=== PATIENT | female | born 1995 | race African-American/Black ===

== ENCOUNTER 2017-04-12 01:22 | Emergency (ER) | payer SELFPAY ==
[2017-04-12 02:01] VITALS: BMI 24.9
[2017-04-12] MEDS ORDERED: diphenhydrAMINE HCL 25 MG CAPSULE (FP) PO ONE ×2 (02:36→02:47)
--- NOTE | 2017-04-12 02:54 | PDOC ---
History of Present Illness - General Stated Complaint: SORE THROAT,ALLERGIC REACTION Time Seen by Provider: 04/12/17 01:39 - History of Present Illness Initial Comments: 04/12/17 02:43 CHIEF COMPLAINT: Sore throat HISTORY OF PRESENT ILLNESS: 21-year-old female with no past medical history presents to ED with sore throat 5 days. Fever, nausea, vomiting, diarrhea. With that she woke up with her lips, itching and tingling to the tip of her nose. Patient denies taking any medication or eating any new foods. Patient denies having any allergies in the past. Denies any difficulty speaking or swallowing, any swelling of her lips, throat, or inside of her mouth. No recent travel or sick contacts. PAST MEDICAL HISTORY: Denies past medical history FAMILY HISTORY: Denies SOCIAL HISTORY: Denies tobacco, alcohol, illicit drug use. SURGICAL HISTORY: Denies ALLERGIES: No known drug allergies REVIEW OF SYSTEMS General/Constitutional: Denies fever or chills. Denies weakness, weight change. HEENT: Sore throat x 5 days. Denies change in vision. Denies ear pain or discharge. Cardiovascular: Denies chest pain or shortness of breath. Respiratory: Denies cough, wheezing, or hemoptysis. Gastrointestinal: Denies nausea, vomiting, diarrhea or constipation. Denies rectal bleeding. Genitourinary: Denies dysuria, frequency, or change in urination. Musculoskeletal: Denies joint or muscle swelling or pain. Denies neck or back pain. Skin and breasts: Denies rash or easy bruising. Neurologic: Denies headache, vertigo, loss of consciousness, or loss of sensation. PHYSICAL EXAM General Appearance: Well-appearing, appropriately dressed. No apparent distress , no intoxication. HEENT: EOMI, PERRLA, normal ENT inspection, normal voice, TMs normal, pharynx normal. No conjunctival pallor. No photophobia, scleral icterus. Neck: Supple. Trachea midline. No tenderness, rigidity, carotid bruit, stridor , lymphadenopathy, or thyromegaly. Respiratory/Chest: Lungs CTAB. No shortness of breath, chest tenderness, respiratory distress, accessory muscle use. No crackles, rales, rhonchi, stridor , wheezing, dullness Cardiovascular: RRR. S1, S2. No JVD, murmur, bradycardia, tachycardia. Vascular Pulses: Dorsalis-Pedis (R): 2+, Dorsalis-Pedis (L): 2+ Gastrointestinal/Abdominal: Normal bowel sounds. Abdomen soft, non-distended. No tenderness or rebound tenderness. No organomegaly, pulsatile mass, guarding , hernia, hepatomegaly, splenomegaly. Lymphatic: No adenopathy, tenderness. Musculoskeletal/Extremities: Normal inspection. FROM of all extremities, normal capillary refill. Pelvis Stable. No CVA tenderness. No tenderness to extremities, pedal edema, swelling, erythema or deformity. Integumentary: Appropriate color, dry, warm. No cyanosis, erythema, jaundice or rash Neurologic: automatic driller and reamer II-XII intact. Fully oriented, alert. Appropriate mood/affect. Motor strength 5/5. No appreciable EOM palsy, facial droop or sensory deficit. 04/12/17 02:54 Past History - Past Medical History Allergies/Adverse Reactions: Allergies Allergy/AdvReac Type Severity Reaction Status Date / Time No Known Allergies Allergy Verified 09/27/13 09:33 Home Medications: Ambulatory Orders Medroxyprogesterone Acetate [Depo-Provera] 400 mg IM MONTHLY 09/16/13 Amoxicillin - [Amoxicillin 500mg Capsule -] 500 mg PO BID #20 capsule 04/12/17 Anemia: No Asthma: No Cancer: No Cardiac Disorders: No CVA: No COPD: No DVT: No Dementia: No Diabetes: No Dialysis: No GI Disorders: No Disorders: No HTN: No Hypercholesterolemia: No HIV: No Kidney Stones: No Liver Disease: No Psychiatric Problems: No Seizures: No Thyroid Disease: No Lung CA: No - Surgical History Abdominal Surgery: No Appendectomy: No Cardiac Surgery: No Cholecystectomy: No Gastric Stapling: No GI Surgery: No Lung Surgery: No Neurologic Surgery: No - Immunization History Immunization Up to Date: Yes - Psycho/Social/Smoking Cessation Hx Anxiety: No Suicidal Ideation: No Smoking History: Never smoked Have you smoked in the past 12 months: No Information on smoking cessation initiated: No Hx Alcohol Use: Yes (Socially) Drug/Substance Use Hx: Yes (Marijuana) Substance Use Type: Marijuana *Physical Exam - Vital Signs Last Vital Signs Temp Pulse Resp BP Pulse Ox 98.5 F 69 18 105/64 96 04/12/17 01:49 04/12/17 01:49 04/12/17 01:49 04/12/17 01:49 04/12/17 01:49 Medical Decision Making - Medical Decision Making 04/12/17 02:54 21-year-old female with no past medical history presents to ED with sore throat 5 days. -Benadryl -Rapid strep 04/12/17 03:37 Patient partner is also here in ER being treated for sore throat with significantly edematous and erythematous tonsils. Will treat empirically with amoxicillin. Advised patient to take medication as prescribed and follow up with PMD next week. Advised patient of signs and symptoms for return to ED. Patient verbalized understanding and agrees to plan. *DC/Admit/Observation/Transfer Diagnosis at time of Disposition: Sore throat - Discharge Dispostion Disposition: HOME Condition at time of disposition: Stable Admit: No - Prescriptions Prescriptions: Amoxicillin - [Amoxicillin 500mg Capsule -] 500 mg PO BID #20 capsule - Patient Instructions Additional Instructions: Pleaes take medication as prescribed and complete the entire course of medication. Please follow-up with primary care doctor next week. If you develop any fever, nausea, vomiting, difficulty speaking or swallowing, swelling of your throat, or any new or worsening symptoms, please return to the ER. - Post Discharge Activity Work/School Note: Back to Work
[2017-04-12 03:55] VITALS: BP 101/66; PULSE 56; TEMP 98.2
== END 2017-04-12 04:11 | disposition home or self-care (01) ==
LOC: JER 01:22
DX: J02.9 Acute pharyngitis, unspecified (principal)
CPT/HCPCS: 87070; 87077; 87430; 99282-25

== ENCOUNTER 2017-07-16 00:30 | Inpatient (IN) | payer BC ==
[2017-07-16 01:22] VITALS: BMI 22.3
--- NOTE | 2017-07-16 01:36 | PDOC ---
History of Present Illness - General History Source: Patient Exam Limitations: No Limitations - History of Present Illness Initial Comments: 07/16/17 01:43 The patient is a 22 year old female, with no significant past medical history who presents to the emergency department with difficulty breathing. Patient states she has been wearing a waist circus trainer for the past week and is dyspneic secondary to R rib pain. Patient states due to her pain, she took the circus trainer off and presents to the ED for further evaluation. Note, patient is on Depo- Provera for control. She denies chest pain, headache or dizziness. She denies fever, chills, abdominal pain, nausea, vomit, diarrhea or constipation. She denies dysuria, frequency, urgency or hematuria. Allergies: NKA Past surgical history: None Social history: Occasional MJ use PCP: None <Cecille Gaytan - Last Filed: 07/16/17 03:10> - General History Source: Patient <MerrickElias tomas - Last Filed: 07/16/17 21:41> - General Chief Complaint: Respiratory Stated Complaint: DIFFICULTY BREATHING Time Seen by Provider: 07/16/17 01:33 Past History <Cecille Gaytan - Last Filed: 07/16/17 03:10> - Past Medical History Anemia: No Asthma: No Cancer: No Cardiac Disorders: No CVA: No COPD: No DVT: No Dementia: No Diabetes: No Dialysis: No GI Disorders: No Disorders: No HTN: No Hypercholesterolemia: No Kidney Stones: No Liver Disease: No Psychiatric Problems: No Seizures: No Thyroid Disease: No Lung CA: No - Surgical History Abdominal Surgery: No Appendectomy: No Cardiac Surgery: No Cholecystectomy: No Gastric Stapling: No GI Surgery: No Lung Surgery: No Neurologic Surgery: No - Immunization History Immunization Up to Date: Yes - Suicide/Smoking/Psychosocial Hx Smoking History: Current some day smoker Have you smoked in the past 12 months: Yes Information on smoking cessation initiated: No Hx Alcohol Use: Yes (Socially) Drug/Substance Use Hx: Yes (Marijuana) Substance Use Type: Marijuana <Elias Gutierrez - Last Filed: 07/16/17 21:41> - Past Medical History Allergies/Adverse Reactions: Allergies Allergy/AdvReac Type Severity Reaction Status Date / Time No Known Allergies Allergy Verified 07/16/17 01:19 Home Medications: Ambulatory Orders Medroxyprogesterone Acetate [Depo-Provera] 400 mg IM MONTHLY 09/16/13 Review of Systems - Review of Systems Able to Perform ROS?: Yes Comments:: 07/16/17 01:43 GENERAL/CONSTITUTIONAL: No fever or chills. No weakness. HEAD, EYES, EARS, NOSE AND THROAT: No change in vision. No ear pain or discharge. No sore throat. GASTROINTESTINAL: No nausea, vomiting, diarrhea or constipation. GENITOURINARY: No dysuria, frequency, or change in urination. CARDIOVASCULAR: No chest pain or shortness of breath. RESPIRATORY: No cough, wheezing, or hemoptysis. MUSCULOSKELETAL: + rib pain. No joint or muscle swelling or pain. No neck or back pain. SKIN: No rash NEUROLOGIC: No headache, vertigo, loss of consciousness, or change in strength/ sensation. ENDOCRINE: No increased thirst. No abnormal weight change. HEMATOLOGIC/LYMPHATIC: No anemia, easy bleeding, or history of blood clots. ALLERGIC/IMMUNOLOGIC: No hives or skin allergy. <Cecille Gaytan - Last Filed: 07/16/17 03:10> *Physical Exam - Vital Signs Last Vital Signs Temp Pulse Resp BP Pulse Ox 98.2 F 106 H 22 104/66 100 07/16/17 01:20 07/16/17 01:20 07/16/17 01:20 07/16/17 01:20 07/16/17 01:20 - Physical Exam Comments: 07/16/17 01:44 GENERAL: Awake, alert, and fully oriented, in no acute distress HEAD: No signs of trauma EYES: PERRLA, EOMI, sclera anicteric, conjunctiva clear ENT: Auricles normal inspection, hearing grossly normal, nares patent, oropharynx clear without exudates. Moist mucosa NECK: Normal ROM, supple, no lymphadenopathy, JVD, or masses LUNGS: + Bilateral decreased breath sounds great jean carlos L than R, clear to auscultation bilaterally. No wheezes, and no crackles HEART: Regular rate and rhythm, normal S1 and S2, no murmurs, rubs or gallops ABDOMEN: Soft, nontender, normoactive bowel sounds. No guarding, no rebound. No masses EXTREMITIES: Normal range of motion, no edema. No clubbing or cyanosis. No cords, erythema, or tenderness NEUROLOGICAL: Cranial nerves II through XII grossly intact. Normal speech, normal gait SKIN: Warm, Dry, normal turgor, no rashes or lesions noted. <Cecille Gaytan - Last Filed: 07/16/17 03:10> - Vital Signs Last Vital Signs Temp Pulse Resp BP Pulse Ox 98.2 F 106 H 22 104/66 100 07/16/17 01:20 07/16/17 01:20 07/16/17 01:20 07/16/17 01:20 07/16/17 01:20 <Elias Gutierrez - Last Filed: 07/16/17 21:41> Heart Score/ECG Review #1 07/16/17 03:[address] Brenda Payne. rate 96 bpm NSR Normal ECG <Cecille Gaytan - Last Filed: 07/16/17 03:10> ED Treatment Course - LABORATORY CBC & Chemistry Diagram: 07/16/17 01:50 07/16/17 01:50 <Cecille Gaytan - Last Filed: 07/16/17 03:10> - LABORATORY CBC & Chemistry Diagram: 07/16/17 13:50 07/16/17 09:20 <Elias Gutierrez - Last Filed: 07/16/17 21:41> Medical Decision Making - Medical Decision Making 07/16/17 21:40 Dr. Gutierrez: The scribe's documentation has been prepared under my direction and personally reviewed by me in its entirery. I confirm that the note above accurately reflects all work, treatment, procedures, and medical decision making performed by me. <Elias Gutierrez - Last Filed: 07/16/17 21:41> *DC/Admit/Observation/Transfer - Attestations Scribe Attestion: 07/16/17 01:44 Documentation prepared by Cecille Gaytan, acting as healthcare or medical for Elias Gutierrez DO. <Cecille Gaytan - Last Filed: 07/16/17 03:10> - Discharge Dispostion Admit: Yes <Elias Gutierrez - Last Filed: 07/16/17 21:41> Diagnosis at time of Disposition: Pulmonary embolism Qualifiers: Chronicity: acute Acute cor pulmonale presence: without acute cor pulmonale
[2017-07-16] MEDS ORDERED: ALBUTEROL SO4 2.5/IPRATROPIUM 0.5 INH SOL 3 ML VIAL.NEB. NEB STA ×2 (01:38)
[2017-07-16] MEDS ORDERED: KETOROLAC TROMETHAMINE 30 MG/1 ML VIAL IVPUSH ONE (01:44)
[2017-07-16 01:57] LABS: EOSINOPHIL 0.1 % (0-4.5); MCH 29.7 pg (25.7-33.7); MCHC 33.6 g/dl (32.0-36.0); MEAN CELL VOLUME 88.4 fl (80-96); MEAN PLT VOLUME 8.6 fl (7.5-11.1); NEUTROPHILS 84.7 % (42.8-82.8); PLATELET COUNT 220 K/MM3 (134-434); RDW 13.9 % (11.6-15.6); WHITE BLOOD COUNT 19.1 K/mm3 (4.0-10.0)
[2017-07-16 02:22] LABS: ANION GAP 11 (8-16); CALCIUM 8.5 mg/dL (8.5-10.1); CO2 21 mmol/L (21-32); CREATININE 2.3 mg/dL (0.55-1.02); GLUCOSE,RANDOM 107 mg/dL (74-106)
[2017-07-16] MEDS ORDERED: SODIUM CHLORIDE 1,000 ML IV STA (02:29)
[2017-07-16] MEDS ORDERED: morphine CARPU-JECT 2 MG/1 ML DISP.SYRIN IVPUSH ONE (02:31)
[2017-07-16] MEDS ORDERED: HEPARIN NA (PORCINE) 5,000 UNITS/ML 1ML VIAL IVPUSH PRN ×2 (02:31)
[2017-07-16] MEDS ORDERED: ONDANSETRON 4 MG/2 ML VIAL IVPUSH STA (02:31)
[2017-07-16] MEDS ORDERED: morphine CARPU-JECT 4 MG/1 ML DISP.SYRIN ONE (02:49)
[2017-07-16] MEDS ORDERED: morphine CARPU-JECT 2 MG/1 ML DISP.SYRIN ONE (02:49)
[2017-07-16] MEDS ORDERED: ONDANSETRON 4 MG/2 ML VIAL ONE (02:50)
[2017-07-16] MEDS ORDERED: HEPARIN INFUSION - 500 ML IVPB ONE (02:51)
[2017-07-16] MEDS ORDERED: HEPARIN NA (PORCINE) 5,000 UNITS/ML 1ML VIAL ONE ×2 (02:51→10:44)
[2017-07-16] MEDS: HEPARIN - 25,000 UNIT in SODIUM CHLORIDE 495 ML IV SCH ×2 (02:59→18:51)
[2017-07-16 03:02] LABS: ALBUMIN 2.7 g/dl (3.4-5.0); BILIRUBIN,DIRECT 0.4 mg/dL (0.0-0.2); BILIRUBIN,TOTAL 0.9 mg/dL (0.2-1.0)
[2017-07-16 03:03] LABS: TOT PROT 6.1 g/dl (6.4-8.2)
[2017-07-16 04:51] LABS: URINE APPEARANCE TURBID; URINE BILIRUBIN NEGATIVE (NEGATIVE); URINE BLOOD 2+ (NEGATIVE); URINE COLOR DKYELLOW; URINE GLUCOSE (UA) NEGATIVE (NEGATIVE); URINE KETONE NEGATIVE (NEGATIVE); URINE NITRITE NEGATIVE (NEGATIVE); URINE UROBILINOGEN NEGATIVE mg/dL (0.2-1.0)
--- NOTE | 2017-07-16 04:51 | HP ---
CHIEF COMPLAINT: Shortness of Breath PCP: None HISTORY OF PRESENT ILLNESS: Ms. Hernandez is a 22yo F with no significant PMHx who presented with a few days of L CVA tenderness and SOB. Pt recently started wearing a waist life skills trainer for 3- 4 days and suddenly felt sharp pain in her L side near ribs. Pain was worse w/ movement, mild relief w/ pain meds and Icy-Hot patch. Two days ago the patient noticed gradual onset difficulty breathing. States deep breathing instigates the pain in her L side. Denies cough, wheezing, or hx of asthma. Pt is on Depoprovera [id number], but denies hemoptysis, leg swelling, inactivity, immobility, smoking history, cancer history. Patient denies urinary symptoms (urgency, frequency, dysuria). Denies personal or FHx of kidney disease. Endorses decreased PO food and fluid intake due to recent passing of aunt. Denies rashes, joint pain, or hx of rheumatologic disease. ER course was notable for: (1) Hemodynamically stable. WBC 19.1 + Tachy (103) + positive UA (2) +D-dimer; BUN/Cr - 29/2.3 (3) IVNS Bolus + Pain control (Morphine, Toradol) Recent Travel: Denies PAST MEDICAL HISTORY: Denies PAST SURGICAL HISTORY: Denies Social History: Smoking: Denies Alcohol: Occasional Drugs: Occasional marijuana Family History: Denies FHx of clotting disorders, kidney disease Allergies: No Known Allergies Allergy (Verified 07/16/17 01:19) HOME MEDICATIONS: Home Medications Medication Instructions Recorded Medroxyprogesterone Acetate 400 mg IM MONTHLY 09/16/13 [Depo-Provera] REVIEW OF SYSTEMS CONSTITUTIONAL: Absent: fever, chills, diaphoresis, generalized weakness, malaise, loss of appetite, weight change HEENT: Absent: rhinorrhea, nasal congestion, throat pain, throat swelling, difficulty swallowing, mouth swelling, ear pain, eye pain, visual changes CARDIOVASCULAR: Absent: chest pain, syncope, palpitations, irregular heart rate, lightheadedness , peripheral edema RESPIRATORY: Absent: cough, dyspnea with exertion, orthopnea, wheezing, stridor, hemoptysis Present: shortness of breath GASTROINTESTINAL: Absent: abdominal pain, abdominal distension, nausea, vomiting, diarrhea, constipation, melena, hematochezia GENITOURINARY: Absent: dysuria, frequency, urgency, hesitancy, hematuria, flank pain, genital pain MUSCULOSKELETAL: Absent: arthralgia, joint swelling, back pain, neck pain Present: myalgia SKIN: Absent: rash, itching, pallor HEMATOLOGIC/IMMUNOLOGIC: Absent: easy bleeding, easy bruising, lymphadenopathy, frequent infections ENDOCRINE: Absent: unexplained weight gain, unexplained weight loss, heat intolerance, cold intolerance NEUROLOGIC: Absent: headache, focal weakness or paresthesias, dizziness, unsteady gait, seizure, mental status changes, bladder or bowel incontinence PSYCHIATRIC: Absent: anxiety, depression, suicidal or homicidal ideation, hallucinations. PHYSICAL EXAMINATION Vital Signs Temperature 98.2 F 07/16/17 01:20 Pulse Rate 83 07/16/17 04:24 Respiratory Rate 16 07/16/17 04:24 Blood Pressure 101/68 07/16/17 04:24 O2 Sat by Pulse Oximetry (%) 97 07/16/17 04:24 GEN: AAOx3, in mild distress due to L sided pain, not in respiratory distress HEENT: PERRLA, EOMI, exophthalmos, no cervical LAD, no thyromegaly CV: S1, S2, RRR, no murmurs LUNG: CTABL ABD: Soft, NT, ND, Normoactive BS MSK: L CVA tenderness, with tenderness to surrounding ribs, no lower ext edema NEURO: CN 2-12 intact, sensation equal and intact to face and body, MSK 5/5, reflexes 2+ Home Medication List Medication Instructions Recorded Confirmed Type Medroxyprogesterone Acetate 400 mg IM MONTHLY 09/16/13 07/16/17 History [Depo-Provera] Laboratory Last Values WBC 19.1 K/mm3 (4.0-10.0) H 07/16/17 01:50 RBC 4.08 M/mm3 (3.60-5.2) 07/16/17 01:50 Hgb 12.1 GM/dL (10.7-15.3) 07/16/17 01:50 Hct 36.0 % (32.4-45.2) 07/16/17 01:50 MCV 88.4 fl (80-96) 07/16/17 01:50 MCH 29.7 pg (25.7-33.7) 07/16/17 01:50 MCHC 33.6 g/dl (32.0-36.0) 07/16/17 01:50 RDW 13.9 % (11.6-15.6) 07/16/17 01:50 Plt Count 220 K/MM3 (134-434) 07/16/17 01:50 MPV 8.6 fl (7.5-11.1) 07/16/17 01:50 Neutrophils % 84.7 % (42.8-82.8) H 07/16/17 01:50 Lymphocytes % 3.9 % (8-40) L 07/16/17 01:50 Monocytes % 11.3 % (3.8-10.2) H 07/16/17 01:50 Eosinophils % 0.1 % (0-4.5) 07/16/17 01:50 Basophils % 0.0 % (0-2.0) 07/16/17 01:50 D-Dimer 1047 ng/ml (<200-235) H 07/16/17 01:50 Sodium 137 mmol/L (136-145) 07/16/17 01:50 Potassium 3.7 mmol/L (3.5-5.1) 07/16/17 01:50 Chloride 105 mmol/L (98-107) 07/16/17 01:50 Carbon Dioxide 21 mmol/L (21-32) 07/16/17 01:50 Anion Gap 11 (8-16) 07/16/17 01:50 BUN 29 mg/dL (7-18) H 07/16/17 01:50 Creatinine 2.3 mg/dL (0.55-1.02) H 07/16/17 01:50 Random Glucose 107 mg/dL (74-106) H 07/16/17 01:50 Lactic Acid 0.6 mmol/L (0.4-2.0) 07/16/17 04:20 Calcium 8.5 mg/dL (8.5-10.1) 07/16/17 01:50 Total Bilirubin 0.9 mg/dL (0.2-1.0) 07/16/17 01:50 Direct Bilirubin 0.4 mg/dL (0.0-0.2) H 07/16/17 01:50 AST 19 U/L (15-37) 07/16/17 01:50 ALT 20 U/L (12-78) 07/16/17 01:50 Alkaline Phosphatase 85 U/L (45-117) 07/16/17 01:50 Creatine Kinase 30 IU/L (26-192) 07/16/17 01:50 Total Protein 6.1 g/dl (6.4-8.2) L 07/16/17 01:50 Albumin 2.7 g/dl (3.4-5.0) L 07/16/17 01:50 Serum , Qual Negative 07/16/17 01:50 Urine Color Dkyellow 07/16/17 04:45 Urine Appearance Turbid 07/16/17 04:45 Urine pH 6.0 (5.0-8.0) 07/16/17 04:45 Urine Protein 1+ (NEGATIVE) H 07/16/17 04:45 Urine Glucose (UA) Negative (NEGATIVE) 07/16/17 04:45 Urine Ketones Negative (NEGATIVE) 07/16/17 04:45 Urine Blood 2+ (NEGATIVE) H 07/16/17 04:45 Urine Nitrite Negative (NEGATIVE) 07/16/17 04:45 Urine Bilirubin Negative (NEGATIVE) 07/16/17 04:45 Urine Urobilinogen Negative mg/dL (0.2-1.0) 07/16/17 04:45 Urine RBC 11 /hpf (0-3) 07/16/17 04:45 Urine WBC 466 /hpf (3-5) 07/16/17 04:45 Ur Epithelial Cells Many /hpf (FEW) 07/16/17 04:45 Urine Bacteria Many /hpf (NONE SEEN) 07/16/17 04:45 Home Medication List Medication Instructions Recorded Confirmed Type Medroxyprogesterone Acetate 400 mg IM MONTHLY 09/16/13 07/16/17 History [Depo-Provera] Active Medications Generic Name Dose Route Start Last Admin Trade Name Freq PRN Reason Stop Dose Admin Acetaminophen 650 mg 07/16/17 04:35 Tylenol - PO Q4H PRN FEVER OR PAIN Heparin Sodium (Porcine) 1,000 unit 07/16/17 02:31 Heparin - IVPUSH PRN PRN Heparin Heparin Sodium (Porcine) 5,000 unit 07/16/17 02:31 Heparin - IVPUSH PRN PRN Heparin Heparin Sodium (Porcine) 25, 500 mls @ 16 mls/hr 07/16/17 02:45 07/16/17 02:59 000 unit/ Sodium Chloride IV 16 mls/hr TITR CRYSTAL Administration Protocol 800 UNIT/HR Sodium Chloride 1,000 mls @ 100 mls/hr 07/16/17 04:45 Normal Saline - IV ASDIR CRYSTAL Ceftriaxone Sodium 1 gm/ 100 mls @ 200 mls/hr 07/16/17 10:00 Dextrose IVPB DAILY CRYSTAL ASSESSMENT/PLAN: Ms. Hernandez is a 22yo F with no significant PMHx who presented with 2 days of SOB , found to have elevated D-dimer and Cr, admitted for r/o PE and JORGE L # Sepsis - likely secondary to Pyelo - WBC, Tachy, +UA - Start Ceftriaxone 1g daily - Blood cx, Urine cx - Renal Ultrasound, check for hydro # JORGE L - vs CKD, no baseline Cr - Obstructive vs renal vs prerenal - FeNa 0.7% - likely pre-renal component - F/u renal U/S - s/p IVNS 1L bolus in ER - Continue to hydrate w/ IVNS 100cc/hr # Shortness of Breath - PE vs rib fracture - Elevated D-dimer, tachycardic, OCP, Wells 4.5 - Prophylactic Heparin drip - Unable to do CTA now due to JORGE L, will order V/Q since CXR looks WNL - BLLE Duplex - Rib X-ray series - Pain control w/ Tylenol 650 Q4 PRN # Exophthalmos - No hx of thyroid disease - F/u TSH # FEN - Fluids: IVNS @ 100cc/hr - Electrolytes: WNL - Nutrition: Regular Diet # Prophylaxis - DVT: Heparin drip - GI: Not indicated - Deconditioning: PT not needed, patient is ambulatory # Dispo - Admit to Med/Surg Case d/w Dr. Garcia and Dr. Anthony Khanna MD - PGY1 Internal Medicine Visit type - Emergency Visit Emergency Visit: Yes ED Registration Date: 07/16/17 Care time: The patient presented to the Emergency Department on the above date and was hospitalized for further evaluation of their emergent condition. - New Patient This patient is new to me today: Yes Date on this admission: 07/18/17 - Critical Care Critical Care patient: No
--- NOTE | 2017-07-16 04:53 | PN ---
Teaching Attending Note Name of Resident: Janki Khanna ATTENDING PHYSICIAN STATEMENT I saw and evaluated the patient. I reviewed the resident's note and discussed the case with the resident. I agree with the resident's findings and plan as documented. SUBJECTIVE: 22 to F with no pmhx presents with shortness of breath and L. flank pain. States about 4 days ago she wore a waist susie and then noticed pain in her left side. Also noticed shortness of breath. No associated cough. ICY-Hot mildly relieved pain. No wheezing. Also notes she takes Depo-Provera every 3 months. States that she has not been eating well and drinking only 3 bottles of Lauren-Georgette per day. OBJECTIVE: Physical: VS: Vital Signs Period Temp Pulse Resp BP Sys/Aparicio Pulse Ox Last 24 Hr 98.2 F 83-106 16-22 101-104/66-68 94-100 GEN: NAD, Resting in bed, HEENT: NCAT, PERRL, throat without exudates, exopthalmos CARD: RRR S1, S2 RESP: CTAB ABD: BSx4, L. CVA tenderness EXT:- C/C/E CBCD WBC 19.1 K/mm3 (4.0-10.0) H 07/16/17 01:50 RBC 4.08 M/mm3 (3.60-5.2) 07/16/17 01:50 Hgb 12.1 GM/dL (10.7-15.3) 07/16/17 01:50 Hct 36.0 % (32.4-45.2) 07/16/17 01:50 MCV 88.4 fl (80-96) 07/16/17 01:50 MCHC 33.6 g/dl (32.0-36.0) 07/16/17 01:50 RDW 13.9 % (11.6-15.6) 07/16/17 01:50 Plt Count 220 K/MM3 (134-434) 07/16/17 01:50 MPV 8.6 fl (7.5-11.1) 07/16/17 01:50 CMP Sodium 137 mmol/L (136-145) 07/16/17 01:50 Potassium 3.7 mmol/L (3.5-5.1) 07/16/17 01:50 Chloride 105 mmol/L (98-107) 07/16/17 01:50 Carbon Dioxide 21 mmol/L (21-32) 07/16/17 01:50 Anion Gap 11 (8-16) 07/16/17 01:50 BUN 29 mg/dL (7-18) H 07/16/17 01:50 Creatinine 2.3 mg/dL (0.55-1.02) H 07/16/17 01:50 Random Glucose 107 mg/dL (74-106) H 07/16/17 01:50 Calcium 8.5 mg/dL (8.5-10.1) 07/16/17 01:50 Total Bilirubin 0.9 mg/dL (0.2-1.0) 07/16/17 01:50 AST 19 U/L (15-37) 07/16/17 01:50 ALT 20 U/L (12-78) 07/16/17 01:50 Alkaline Phosphatase 85 U/L (45-117) 07/16/17 01:50 Total Protein 6.1 g/dl (6.4-8.2) L 07/16/17 01:50 Albumin 2.7 g/dl (3.4-5.0) L 07/16/17 01:50 CARDIAC ENZYMES Creatine Kinase 30 IU/L (26-192) 07/16/17 01:50 Urine Test Results Urine Color Dkyellow 07/16/17 04:45 Urine Appearance Turbid 07/16/17 04:45 Urine pH 6.0 (5.0-8.0) 07/16/17 04:45 Urine Protein 1+ (NEGATIVE) H 07/16/17 04:45 Urine Glucose (UA) Negative (NEGATIVE) 07/16/17 04:45 Urine Ketones Negative (NEGATIVE) 07/16/17 04:45 Urine Blood 2+ (NEGATIVE) H 07/16/17 04:45 Urine Nitrite Negative (NEGATIVE) 07/16/17 04:45 Urine Bilirubin Negative (NEGATIVE) 07/16/17 04:45 Urine RBC 11 /hpf (0-3) 07/16/17 04:45 Urine WBC 466 /hpf (3-5) 07/16/17 04:45 Ur Epithelial Cells Many /hpf (FEW) 07/16/17 04:45 Urine Bacteria Many /hpf (NONE SEEN) 09/20/17 04:45 CXR- No Acute Process EKG- NSR, no acute St-T changes ASSESSMENT AND PLAN: 22 F with no pmhx presents with shortness of breath and Sepsis, found to be in ARF 1.) Sepsis - Due to Pyelo most likely - Repeat LA - IVF - Adame Cx - Ceftriaxone 2.) ARF - DDx: Sinclair/Dehydration - Renal US - IVF - U Lytes - Possible Uro consult,if hydro 3.) Shortness of Breath - Well score 4.5 - On Depo, Inc Dimer - Unable to do CTA (renal failure), Consider V/Q - Hep. gtt - TSH 4.) Dvt Ppx - On Hep. Gtt
[2017-07-16 04:55] LABS: URINE LEUK ESTERASE 3+ (NEGATIVE); URINE PROTEIN 1+ (NEGATIVE)
[2017-07-16 04:56] LABS: URINE BACTERIA MANY /hpf (NONE SEEN); URINE RBC 11 /hpf (0-3); URINE WBC 466 /hpf (3-5)
[2017-07-16] MEDS: SODIUM CHLORIDE 1,000 ML IV SCH (05:38)
[2017-07-16] MEDS ORDERED: CEFTRIAXONE 1 GM in DEXTROSE 5%-WATER - 50 ML IVPB SCH (10:00)
[2017-07-16 10:01] LABS: ANION GAP 6 (8-16); CALCIUM 8.5 mg/dL (8.5-10.1); CO2 24 mmol/L (21-32); CREATININE 2.1 mg/dL (0.55-1.02); GLUCOSE,RANDOM 97 mg/dL (74-106)
[2017-07-16 10:10] LABS: THYROID STIMULATING HORMONE 0.57 uIU/ml (0.358-3.74)
--- NOTE | 2017-07-16 10:32 | EKG ---
Test Reason : Blood Pressure : / mmHG Vent. Rate : 096 BPM Atrial Rate : 096 BPM P-R Int : 148 ms QRS Dur : 084 ms QT Int : 322 ms P-R-T Axes : 036 054 048 degrees QTc Int : 406 ms NORMAL SINUS RHYTHM NORMAL ECG NO PREVIOUS ECGS AVAILABLE Confirmed by ESSENCE MERLOS, DIETER ([id number]) on 07/16/2017 10:31:42 AM Referred By: Confirmed By:DIETER LOWRY MD
[2017-07-16] MEDS ORDERED: CEFTRIAXONE 50 ML IVPB SCH (11:15)
[2017-07-16] MEDS ORDERED: CEFTRIAXONE 50 ML ONE (11:17)
--- NOTE | 2017-07-16 13:32 | CON.PULM ---
Consult Consult Specialty:: PULMONARY Reason for Consultation:: RO PE - History of Present Illness Chief Complaint: PLEURITIC TYPE CP History of Present Illness: The patient is a 22 year old female, with no significant past medical history who presents to the emergency department with difficulty breathing. Patient states she has been wearing a waist emr trainer for the past week and is dyspneic secondary to R rib pain. Patient states due to her pain, she took the emr trainer off and presents to the ED for further evaluation. Note, patient is on Depo- Provera for control. She denies headache or dizziness. She denies fever, chills, abdominal pain, nausea, vomit, diarrhea or constipation. She denies dysuria, frequency, urgency or hematuria. - History Source History Provided By: Patient, Medical Record Limitations to Obtaining History: No Limitations - Past Medical History [employer]: No: Alzheimer's Cardio/Vascular: No: AFIB Pulmonary: No: Asthma Gastrointestinal: No: Ascites Hepatobiliary: No: Cirrhosis Renal/: Yes: Renal Inusuff - Alcohol/Substance Use Hx Alcohol Use: Yes (Socially) - Smoking History Smoking history: Current some day smoker Have you smoked in the past 12 months: Yes - Social History Place of : [facility] Home Medications - Allergies Allergies/Adverse Reactions: Allergies Allergy/AdvReac Type Severity Reaction Status Date / Time No Known Allergies Allergy Verified 07/16/17 01:19 - Home Medications Home Medications: Ambulatory Orders Medroxyprogesterone Acetate [Depo-Provera] 400 mg IM MONTHLY 09/16/13 Family Disease History - Family Disease History Family History: Unremarkable Review of Systems - Review of Systems Cardiovascular: reports: Chest Pain, Shortness of Breath Respiratory: reports: Exercise Intolerance, SOB on Exertion. denies: Hemoptysis Physical Exam Vital Sings: Vital Signs Temperature 98.2 F 07/16/17 01:20 Pulse Rate 117 H 07/16/17 12:33 Respiratory Rate 25 H 07/16/17 12:33 Blood Pressure 112/63 07/16/17 12:33 O2 Sat by Pulse Oximetry (%) 95 07/16/17 12:33 Constitutional: Yes: Calm Eyes: Yes: EOM Intact HENT: Yes: Normocephalic Neck: Yes: Trachea Midline Cardiovascular: Yes: Regular Rate and Rhythm, Tachycardia Respiratory: Yes: CTA Bilaterally Gastrointestinal: Yes: Soft Edema: No Labs: CBC, BMP 07/16/17 09:20 Imaging - Results Chest X-ray: Report Reviewed, Image Reviewed Ultrasound: Report Reviewed Problem List - Problems (1) Pulmonary embolism Code(s): I26.99 - OTHER PULMONARY EMBOLISM WITHOUT ACUTE COR PULMONALE Qualifiers: Chronicity: acute Acute cor pulmonale presence: without acute cor pulmonale (2) Sore throat Code(s): J02.9 - ACUTE PHARYNGITIS, UNSPECIFIED (3) Sepsis due to Escherichia coli with acute renal failure Code(s): A41.81 - SEPSIS DUE TO ENTEROCOCCUS R65.20 - SEVERE SEPSIS WITHOUT SEPTIC SHOCK N17.9 - ACUTE KIDNEY FAILURE, UNSPECIFIED Assessment/Plan MODERATE INDEX OF SUSPICIO FOR VTE ELEVATE D-DIMER COULD BE DUE TO POSSIBLE INFECTION(?PYELONEPHRITIS) WOULD TREAT FOR PE UNTIL RULED OUT WITH VQ IN AM AGREE WITH ANTIBIOTIC COVERAGE CHECK CULTURES SPOKE WITH RESIDENT REGARDING PLAN Maximino RIVERA MD
[2017-07-16 14:02] LABS: MCH 29.2 pg (25.7-33.7); MCHC 33.2 g/dl (32.0-36.0); MEAN CELL VOLUME 87.8 fl (80-96); MEAN PLT VOLUME 8.5 fl (7.5-11.1); PLATELET COUNT 249 K/MM3 (134-434); RDW 14.5 % (11.6-15.6); WHITE BLOOD COUNT 18.7 K/mm3 (4.0-10.0)
--- NOTE | 2017-07-16 14:40 | PN ---
Physical Exam: SUBJECTIVE: Patient seen and examined. No acute events overnight. Pt reports left flank and LLQ abdominal pain that is 5/10, improved from before coming to the hospital. She also endorses mild RLQ abdominal pain and fast breathing, but denies SOB, chest pain, lightheadedness, n/v/d/c, dysuria, urgency, and frequency. OBJECTIVE: Vital Signs Period Temp Pulse Resp BP Sys/Aparicio Pulse Ox Last 24 Hr 83-117 16-29 101-112/63-78 94-100 GENERAL: The patient is awake, alert, and fully oriented, in distress. HEAD: Normal with no signs of trauma. EYES: PERRL, extraocular movements intact, sclera anicteric, conjunctiva clear. No ptosis. ENT: Ears normal, nares patent, oropharynx clear without exudates, moist mucous membranes. NECK: Trachea midline, full range of motion, supple. LUNGS: decreased inspiratory effort due to pain, no wheezing or rales appreciated HEART: tachycardic, regular rhythm, S1, S2 without murmur, rub or gallop. ABDOMEN: normoactive bowel sounds, soft, ND, tender in suprapubic region, no organomegaly EXTREMITIES: 2+ pulses, warm, well-perfused, no edema. NEUROLOGICAL: Cranial nerves II through XII grossly intact. Normal speech, gait not observed. SKIN: Warm, dry, normal turgor, no rashes or lesions noted Laboratory Results - last 24 hr 07/16/17 07/16/17 07/16/17 04:20 04:45 04:49 WBC RBC Hgb Hct MCV MCH MCHC RDW Plt Count MPV Neutrophils % Lymphocytes % PTT (Actin FS) Sodium Potassium Chloride Carbon Dioxide Anion Gap BUN Creatinine Random Glucose Lactic Acid 0.6 Calcium TSH Urine Color Dkyellow Urine Appearance Turbid Urine pH 6.0 Ur Specific Rembert <= 1.005 Urine Protein 1+ H Urine Glucose (UA) Negative Urine Ketones Negative Urine Blood 2+ H Urine Nitrite Negative Urine Bilirubin Negative Urine Urobilinogen Negative Urine RBC 11 Urine WBC 466 Ur Epithelial Cells Many Urine Bacteria Many Ur Random Sodium 22 Ur Random Potassium 12.7 Ur Random Chloride 17 Urine Creatinine 07/16/17 07/16/17 07/16/17 04:50 09:20 09:20 WBC RBC Hgb Hct MCV MCH MCHC RDW Plt Count MPV Neutrophils % Lymphocytes % PTT (Actin FS) 37.5 H Sodium 139 Potassium 3.9 Chloride 109 H Carbon Dioxide 24 Anion Gap 6 L BUN 28 H Creatinine 2.1 H Random Glucose 97 Lactic Acid Calcium 8.5 TSH 0.57 Urine Color Urine Appearance Urine pH Ur Specific Rembert Urine Protein Urine Glucose (UA) Urine Ketones Urine Blood Urine Nitrite Urine Bilirubin Urine Urobilinogen Urine RBC Urine WBC Ur Epithelial Cells Urine Bacteria Ur Random Sodium Ur Random Potassium Ur Random Chloride Urine Creatinine 55.6 07/16/17 13:50 WBC 18.7 H RBC 4.43 Hgb 12.9 Hct 38.9 MCV 87.8 MCH 29.2 MCHC 33.2 RDW 14.5 Plt Count 249 MPV 8.5 Neutrophils % No Result Required. Lymphocytes % No Result Required. PTT (Actin FS) Sodium Potassium Chloride Carbon Dioxide Anion Gap BUN Creatinine Random Glucose Lactic Acid Calcium TSH Urine Color Urine Appearance Urine pH Ur Specific Rembert Urine Protein Urine Glucose (UA) Urine Ketones Urine Blood Urine Nitrite Urine Bilirubin Urine Urobilinogen Urine RBC Urine WBC Ur Epithelial Cells Urine Bacteria Ur Random Sodium Ur Random Potassium Ur Random Chloride Urine Creatinine Active Medications Generic Name Dose Route Start Last Admin Trade Name Freq PRN Reason Stop Dose Admin Acetaminophen 650 mg 07/16/17 04:35 Tylenol - PO Q4H PRN FEVER OR PAIN Heparin Sodium (Porcine) 1,000 unit 07/16/17 02:31 Heparin - IVPUSH PRN PRN Heparin Heparin Sodium (Porcine) 5,000 unit 07/16/17 02:31 07/16/17 10:44 Heparin - IVPUSH 5,000 unit PRN PRN Administration Heparin Heparin Sodium (Porcine) 25, 500 mls @ 16 mls/hr 07/16/17 02:45 07/16/17 10:49 000 unit/ Sodium Chloride IV 950 unit/hr TITR CRYSTAL Titration Protocol 800 UNIT/HR Sodium Chloride 1,000 mls @ 100 mls/hr 07/16/17 04:45 07/16/17 05:38 Normal Saline - IV 100 mls/hr ASDIR CRYSTAL Administration Ceftriaxone Sodium 50 mls @ 100 mls/hr 07/16/17 11:15 07/16/17 11:20 Rocephin 1gm Ivpb (Pre-Docked) IVPB 100 mls/hr DAILY CRYSTAL Administration B/l duplex: negative for DVT Renal US: mild right hydronephrosis and b/l hyperechoic kidneys Rib XR: no acute fracture TSH: 0.57 ASSESSMENT/PLAN: 22F w/ no PMH who presented with L flank pain, found to have suprapubic and left CVA tenderness, a leukocytosis, UA showing a UTI, admitted for pyelonephritis, started on ceftriaxone. #pyelonephritis -positive UA, left CVA and suprapubic tenderness, leukocytosis -continue ceftriaxone 1g IV qd -f/u urine culture, blood cultures, and sensitivities -f/u repeat renal US -pain control with APAP 650mg q4h PRN -trend wbc count, monitor temps #JORGE L -likely 2/2 pyelonephritis and decreased po intake, likely pre-renal with FeNa of 0.7% -unknown baseline creatinine, could be CKD -continue NS at 100cc/hr -trend creatinine and BUN #SOB/fast breathing -likely 2/2 infection. Less likely PE -D-dimer of 1047 -b/l LE duplex are negative for DVT -f/u V/Q scan -continue heparin drip as per pulm- Dr. Heath until V/Q scan results come back #FEN/PPx -NS at 100 -wnl -regular diet -no GI ppx indicated -heparin drip Jerman Jorge MD PGY1 Visit type - Emergency Visit Emergency Visit: Yes ED Registration Date: 07/16/17 Care time: The patient presented to the Emergency Department on the above date and was hospitalized for further evaluation of their emergent condition. - New Patient This patient is new to me today: Yes Date on this admission: 07/16/17 - Critical Care Critical Care patient: No
[2017-07-16 14:41] LABS: TOTAL CELLS COUNTED 100
[2017-07-16 14:42] LABS: PLATELET ESTIMATE ADEQUATE (NORMAL)
--- NOTE | 2017-07-16 15:42 | PN ---
Teaching Attending Note Name of Resident: Jerman Jorge ATTENDING PHYSICIAN STATEMENT I saw and evaluated the patient. I reviewed the resident's note and discussed the case with the resident. I agree with the resident's findings and plan as documented. SUBJECTIVE: feels a little better. cont to have L flank pain. no SOB but felt tachypnic earlier . OBJECTIVE: NAD , AAox3 CV : RRR, no MRG LUngs : CTAB ext : no edema Abd : soft, ND, TTP in suprapubic area , no rebound tenderness, b/l CVA tenderness ASSESSMENT AND PLAN: 22 y/o lady with no PMH who presented with fever and abd apin , and was found to have sepssi from pyelonephritis 1- Sepsis 2/2 pyelonephritis: - Ceftriaxone. - follow blood cx and urine cx. - IVF 2- JORGE L: likely prerenal due to decreased po intake, sepsis might be contributing. FeNA 0.7% renal US with mild R hydronephrosis. - Repeat US tomorrow - cont IVF 3- Tachypnea, and tachycardia are probably due to sepsis . clinical suspicion for PE is low with WELLS score of 1.5 , but she has an elevated D dimer - cont heparin gtt - VQ scan pending . If neg will dc heparin HLOC
[2017-07-16] MEDS: ACETAMINOPHEN 325 MG TABLET (FP) PO PRN ×2 (16:04→23:42)
[2017-07-16] MEDS ORDERED: PIPERACILLIN/TAZOBACTAM 3.375 GM VIAL IVPB ONE (17:18)
[2017-07-16] MEDS ORDERED: DEXTROSE 5%-WATER - 50 ML IVPB ONE (17:18)
[2017-07-16] MEDS: PIPERACILLIN/TAZOB 3.375 GM 3.375 GM in DEXTROSE 5%-WATER - 50 ML IVPB SCH (17:29)
[2017-07-16] MEDS ORDERED: PIPERACILLIN/TAZOB 3.375 GM/50 ML PRE-DOCKED IVPB SCH (18:00)
[2017-07-17] MEDS ORDERED: DEXTROSE 5%-WATER - 50 ML IVPB ONE ×3 (01:07→16:59)
[2017-07-17] MEDS ORDERED: PIPERACILLIN/TAZOBACTAM 3.375 GM VIAL IVPB ONE ×3 (01:07→16:59)
[2017-07-17] MEDS: PIPERACILLIN/TAZOB 3.375 GM 3.375 GM in DEXTROSE 5%-WATER - 50 ML IVPB SCH ×2 (01:18→17:01)
[2017-07-17] MEDS: SODIUM CHLORIDE 1,000 ML IV SCH ×3 (03:25→22:45)
[2017-07-17] MEDS: HEPARIN - 25,000 UNIT in SODIUM CHLORIDE 495 ML IV SCH (05:13)
[2017-07-17] MEDS: ACETAMINOPHEN 325 MG TABLET (FP) PO PRN ×3 (07:59→21:48)
[2017-07-17 08:04] LABS: BASOPHIL 0.1 % (0-2.0); MCH 29.4 pg (25.7-33.7); MCHC 33.2 g/dl (32.0-36.0); MEAN CELL VOLUME 88.3 fl (80-96); MEAN PLT VOLUME 8.4 fl (7.5-11.1); NEUTROPHILS 81.6 % (42.8-82.8); PLATELET COUNT 262 K/MM3 (134-434); RDW 14.4 % (11.6-15.6); WHITE BLOOD COUNT 16.7 K/mm3 (4.0-10.0)
[2017-07-17] MEDS ORDERED: SODIUM CHLORIDE 1,000 ML IV STA (08:31)
[2017-07-17 08:32] LABS: ALBUMIN 2.1 g/dl (3.4-5.0); ANION GAP 10 (8-16); CALCIUM 8.1 mg/dL (8.5-10.1); CO2 23 mmol/L (21-32); GLUCOSE,RANDOM 85 mg/dL (74-106)
[2017-07-17 08:36] LABS: ALK PHOS 90 U/L (45-117); BILIRUBIN,TOTAL 1.1 mg/dL (0.2-1.0); CREATININE 1.7 mg/dL (0.55-1.02); SGOT/AST 16 U/L (15-37); SGPT/ALT 20 U/L (12-78); TOT PROT 5.4 g/dl (6.4-8.2)
[2017-07-17] MEDS ORDERED: PIPERACILLIN/TAZOB 3.375 GM 3.375 GM in DEXTROSE 5%-WATER - 50 ML IVPB ONE (09:00)
--- NOTE | 2017-07-17 09:13 | PN ---
Progress Note, Physician Chief Complaint: ID Full note dictated Complain of left flank pain - Current Medication List Current Medications: Active Medications Acetaminophen (Tylenol -) 650 mg PO Q4H PRN PRN Reason: FEVER OR PAIN Last Admin: 07/17/17 07:59 Dose: 650 mg Heparin Sodium (Porcine) (Heparin -) 1,000 unit IVPUSH PRN PRN PRN Reason: Heparin Heparin Sodium (Porcine) (Heparin -) 5,000 unit IVPUSH PRN PRN PRN Reason: Heparin Last Admin: 07/16/17 10:44 Dose: 5,000 unit Heparin Sodium (Porcine) 25, (000 unit/ Sodium Chloride) 500 mls @ 16 mls/hr IV TITR CRYSTAL; 800 UNIT/HR PRN Reason: Protocol Last Admin: 07/17/17 05:13 Dose: 22 mls/hr Piperacillin Sod/Tazobactam (Sod 3.375 gm/ Dextrose) 50 mls @ 100 mls/hr IVPB ONCE ONE PRN Reason: Protocol Stop: 07/17/17 09:29 Sodium Chloride (Normal Saline -) 1,000 mls @ 1,000 mls/hr IV ASDIR STA Stop: 07/17/17 09:30 Last Admin: 07/17/17 08:47 Dose: 1,000 mls/hr Sodium Chloride (Normal Saline -) 1,000 mls @ 125 mls/hr IV ASDIR CRYSTAL Piperacillin Sod/Tazobactam Sod (Zosyn 3.375gm Ivpb (Pre-Docked)) 3.375 gm IVPB Q8H-IV CRYSTAL PRN Reason: Protocol - Objective Vital Signs: Vital Signs Temperature 102.7 F H 07/17/17 08:04 Pulse Rate 126 H 07/17/17 08:04 Respiratory Rate 20 07/17/17 08:04 Blood Pressure 100/60 07/17/17 08:04 O2 Sat by Pulse Oximetry (%) 97 07/16/17 21:00 Constitutional: Yes: Mild Distress, Other (Ill appearing) Cardiovascular: Yes: Regular Rate and Rhythm, S1, S2 Respiratory: Yes: WNL, Regular, CTA Bilaterally Gastrointestinal: Yes: WNL, Normal Bowel Sounds, Soft. No: Tenderness, Tenderness, Epigastrium Genitourinary: Yes: CVA Tenderness - Left Labs: CBC, BMP 07/17/17 05:47 07/17/17 05:47 Problem List - Problems (1) Sepsis Code(s): A41.9 - SEPSIS, UNSPECIFIED ORGANISM (2) Gram-negative bacteremia Code(s): R78.81 - BACTEREMIA (3) UTI (urinary tract infection) Code(s): N39.0 - URINARY TRACT INFECTION, SITE NOT SPECIFIED Assessment/Plan Microbiology 07/16/17 05:10 Blood - Peripheral Venous Blood Culture - Preliminary Non Lactose Fermenting Gnb 07/16/17 05:10 Blood - Peripheral Venous Blood Culture - Preliminary NO GROWTH OBTAINED AFTER 24 HOURS, INCUBATION TO CONTINUE FOR 4 DAYS. Laboratory Tests 07/16/17 07/17/17 07/17/17 04:45 05:47 05:47 WBC 16.7 H Hgb 12.7 Plt Count 262 Neutrophils % 81.6 Lymphocytes % 5.0 L D Monocytes % 12.3 H BUN 21 H D Creatinine 1.7 H Creat Clearance w eGFR 37.25 Urine Urobilinogen Negative Urine RBC 11 Urine WBC 466 Urine Bacteria Many Assessment Pyelonephritis with gnb NLF bacteremia with acute kidne injury Plan Continue zosyn as ordered Pyellonephritis with fever will take 72 hours to begin to improve fever ect. Await sensitivities Culture
[2017-07-17 10:27] LABS: C-REACTIVE PROTEIN 18.6 MG/DL (0.00-0.3)
--- NOTE | 2017-07-17 11:12 | CONS ---
INFECTIOUS DISEASE CONSULTATION DATE OF CONSULTATION: DATE OF DICTATION: 07/17/2017 HISTORY OF PRESENT ILLNESS: This is a 22-year-old female who I asked to see for evaluation of gram-negative bacteremia. She was in her usual state of health until about 3 days ago when she developed onset of severe left costovertebral angle and flank tenderness. She denied any chills or urinary complaints, and when she came to the hospital, was noted to be febrile. Mention is made of difficulty breathing in the initial notes, noting that she has been on Depo-Provera for 3 months. She denied any hemoptysis, smoking history, or prior medical history. Her HIV status is unknown. She was noted to have a white count of 19,000 with a BUN of 29 and a creatinine of 2.3. She has no prior history of kidney stones or prior urinary operations. FAMILY HISTORY: Noncontributory. SOCIAL HISTORY: Lives with her mother, works as a checker cashier, involved in a relationship. HIV status unknown. REVIEW OF SYSTEMS: Respiratory: Currently no cough or shortness of breath. Cardiac: No chest pain or palpitations. Gastrointestinal: No nausea, vomiting, or diarrhea. Genitourinary: Left flank tenderness. PHYSICAL EXAMINATION: General: She was a well-nourished appearing woman in no acute distress. Vital Signs: Temperature 99.5, pulse 98, blood pressure 110/60, respirations 20 , O2 saturation 99 on room air. Neck: Supple without adenopathy. Lungs: Clear to P&A. Heart: S1, S2. Regular rhythm without audible murmur. Tachycardic. Abdomen: Soft, nontender, without hepatosplenomegaly. Positive bowel sounds. Extremities: Without clubbing, cyanosis, or edema. Genitourinary: Left flank CVA tenderness. DIAGNOSTIC DATA: The white count is 16.7, hemoglobin 12.7, platelets of 261, polys 82%, lymphs 5, monocytes 12. BUN 21, creatinine 1.7, creatinine clearance 37. Liver enzymes within normal limit. test negative. Urinalysis with 466 white cells, 11 RBCs, and many bacteria. Blood culture with a [id number]-palqiseumw gram-negative seth. Urine culture pending. Renal sonogram with mild hydronephrosis noted of the left kidney. ASSESSMENT: A 22-year-old female with no prior medical history, who presents withfever of 104 and clinical findings on examination and laboratory data consistent with a diagnosis of acute pyelonephritis. She has now bacteremia with a gram-negative seth, non-lactose tag and label cutter, with acute kidney injury, with renal function improving. Minimal hydronephrosis noted on the right side. The possibility of a kidney stone is considered, and in which case, a proteus sps. might be that ily-vqjnohr-vqajltcjts gram-negative seth. As she has already been switched once from ceftriaxone to piperacillin/tazobactam, would continue her on Zosyn for now, adjust it for creatinine clearance, with followup de-escalation based on final culture and sensitivity. Clinically, expect this will likely take 72 hours or more for her to completely improve. We will obtain HIV testing for her as per CDC guidelines. GILLIAN JANG M.D. MIQUEL/[id number] MTDD
[2017-07-17 12:19] LABS: HIV 1 & 2 AB NEGATIVE; HIV 1 AGp24 NEGATIVE
--- NOTE | 2017-07-17 12:35 | PN ---
Progress Note (short form) - Note Progress Note: PULMONARY Flank pain better. Still some discomfort with deep inspiration. Last Vital Signs Temp Pulse Resp BP Pulse Ox 99.5 F 98 H 20 100/60 97 07/17/17 09:08 07/17/17 09:08 07/17/17 08:04 07/17/17 08:04 07/16/17 21:00 Gen: NAD at rest Heart: RRR Lung: decreased breath sounds at the bases Abd: soft, nontender Ext: no edema CBC, BMP 07/17/17 05:47 07/17/17 05:47 Active Medications Acetaminophen (Tylenol -) 650 mg PO Q4H PRN PRN Reason: FEVER OR PAIN Last Admin: 07/17/17 07:59 Dose: 650 mg Heparin Sodium (Porcine) (Heparin -) 1,000 unit IVPUSH PRN PRN PRN Reason: Heparin Heparin Sodium (Porcine) (Heparin -) 5,000 unit IVPUSH PRN PRN PRN Reason: Heparin Last Admin: 07/16/17 10:44 Dose: 5,000 unit Heparin Sodium (Porcine) 25, (000 unit/ Sodium Chloride) 500 mls @ 16 mls/hr IV TITR CRYSTAL; 800 UNIT/HR PRN Reason: Protocol Last Admin: 07/17/17 05:13 Dose: 22 mls/hr Sodium Chloride (Normal Saline -) 1,000 mls @ 125 mls/hr IV ASDIR CRYSTAL Last Admin: 07/17/17 11:07 Dose: 125 mls/hr Piperacillin Sod/Tazobactam (Sod 3.375 gm/ Dextrose) 50 mls @ 100 mls/hr IVPB Q8H-IV CRYSTAL PRN Reason: Protocol A/P Pyelonephritis/UTI Gram Negative Bacteremia Severe Sepsis Acute Kidney Injury r/o PE - continue antibiotics - f/u cultures - IVF - monitor urine output, creatinine - d/c anticoagulation if V/Q negative - DVT prophylaxis
[2017-07-17] MEDS ORDERED: POTASSIUM CHLORIDE TABS 20 MEQ TABLET.ER (FP) PO ONE (13:30)
--- NOTE | 2017-07-17 14:47 | PN ---
Physical Exam: SUBJECTIVE: Patient seen and examined. Says shes still in pain but significantly better than yesterday. She says the pain is in right flank and it decreased in intensity. Patient said shes able to walk around now. No acute events over night. OBJECTIVE: Vital Signs Period Temp Pulse Resp BP Sys/Aparicio Pulse Ox Last 24 Hr 99 F-104.1 F 86-126 18-20 90-109/45-61 97-99 GENERAL: The patient is awake, alert, and fully oriented, in distress. HEAD: Normal with no signs of trauma. EYES: PERRL, extraocular movements intact, sclera anicteric, conjunctiva clear. No ptosis. ENT: Ears normal, nares patent, oropharynx clear without exudates, moist mucous membranes. NECK: supple. LUNGS: CTA b/l, no rales rhonchi or wheezing HEART: tachycardic at 120 , regular rhythm, S1, S2 without murmur, rub or gallop. ABDOMEN: normoactive bowel sounds, soft, ND, + Right CVA tenderness, no organomegaly EXTREMITIES: 2+ pulses, warm, well-perfused, no edema. NEUROLOGICAL: Cranial nerves II through XII grossly intact. Normal speech, gait not observed. SKIN: Warm, dry, normal turgor, no rashes or lesions noted Laboratory Results - last 24 hr 07/16/17 07/16/17 07/17/17 13:50 17:00 00:30 WBC 18.7 H RBC 4.43 Hgb 12.9 Hct 38.9 MCV 87.8 MCH 29.2 MCHC 33.2 RDW 14.5 Plt Count 249 MPV 8.5 Total Counted 100 Neutrophils % Neutrophils % (Manual) 89 H Lymphocytes % Lymphocytes % (Manual) 2 L Monocytes % Monocytes % (Manual) 9 Eosinophils % Basophils % Platelet Estimate Adequate PTT (Actin FS) 34.8 H 54.0 H D Sodium Potassium Chloride Carbon Dioxide Anion Gap BUN Creatinine Creat Clearance w eGFR Random Glucose Calcium Total Bilirubin AST ALT Alkaline Phosphatase C-Reactive Protein Total Protein Albumin HIV 1&2 Antibody Screen HIV P24 Antigen 07/17/17 07/17/17 07/17/17 05:47 05:47 09:39 WBC 16.7 H RBC 4.32 Hgb 12.7 Hct 38.1 MCV 88.3 MCH 29.4 MCHC 33.2 RDW 14.4 Plt Count 262 MPV 8.4 Total Counted Neutrophils % 81.6 Neutrophils % (Manual) Lymphocytes % 5.0 L D Lymphocytes % (Manual) Monocytes % 12.3 H Monocytes % (Manual) Eosinophils % 1.0 D Basophils % 0.1 D Platelet Estimate PTT (Actin FS) Sodium 143 Potassium 3.5 Chloride 110 H Carbon Dioxide 23 Anion Gap 10 BUN 21 H D Creatinine 1.7 H Creat Clearance w eGFR 37.25 Random Glucose 85 Calcium 8.1 L Total Bilirubin 1.1 H D AST 16 ALT 20 Alkaline Phosphatase 90 C-Reactive Protein 18.6 H Cancelled Total Protein 5.4 L Albumin 2.1 L D HIV 1&2 Antibody Screen HIV P24 Antigen 07/17/17 11:10 WBC RBC Hgb Hct MCV MCH MCHC RDW Plt Count MPV Total Counted Neutrophils % Neutrophils % (Manual) Lymphocytes % Lymphocytes % (Manual) Monocytes % Monocytes % (Manual) Eosinophils % Basophils % Platelet Estimate PTT (Actin FS) Sodium Potassium Chloride Carbon Dioxide Anion Gap BUN Creatinine Creat Clearance w eGFR Random Glucose Calcium Total Bilirubin AST ALT Alkaline Phosphatase C-Reactive Protein Total Protein Albumin HIV 1&2 Antibody Screen Negative HIV P24 Antigen Negative Active Medications Generic Name Dose Route Start Last Admin Trade Name Freq PRN Reason Stop Dose Admin Acetaminophen 650 mg 07/16/17 04:35 07/17/17 07:59 Tylenol - PO 650 mg Q4H PRN Administration FEVER OR PAIN Sodium Chloride 1,000 mls @ 125 mls/hr 07/17/17 09:30 07/17/17 11:07 Normal Saline - IV 125 mls/hr ASDIR CRYSTAL Administration Piperacillin Sod/Tazobactam 50 mls @ 100 mls/hr 07/17/17 18:00 Sod 3.375 gm/ Dextrose IVPB Q8H-IV CRYSTAL Protocol B/l duplex: negative for DVT Renal US: mild right hydronephrosis and b/l hyperechoic kidneys Rib XR: no acute fracture TSH: 0.57 V/Q Scan- negative for PE ASSESSMENT/PLAN: 22F w/ no PMH who presented with L flank pain, found to have suprapubic and left CVA tenderness, a leukocytosis, UA showing a UTI, admitted for pyelonephritis, started on ceftriaxone. #Pyelonephritis -urine culture positive for non lactose fermenting gram negative seth -left CVA -Temp 99.99 -Continue IV antibiotics: Zosyn 3.375 -WBC trending down -pain control with Acetaminophen 650mg q4h PRN -trend wbc count, monitor temps #JORGE L -likely secondary to pyelonephritis and decreased po intake -Kidney function improving. Creatinine 1.7 (2.3 yesterday) -continue NS at 125cc/hr -trend creatinine and BUN #FEN/PPx -NS at 125 -electrolytes WNL -regular diet -no GI ppx indicated -Heparin SQ 5000U Visit type - Emergency Visit Emergency Visit: Yes ED Registration Date: 07/16/17 Care time: The patient presented to the Emergency Department on the above date and was hospitalized for further evaluation of their emergent condition. - New Patient This patient is new to me today: Yes Date on this admission: 07/17/17 - Critical Care Critical Care patient: No
--- NOTE | 2017-07-17 17:47 | PN ---
Teaching Attending Note Name of Resident: Lilli Marrero ATTENDING PHYSICIAN STATEMENT I saw and evaluated the patient. I reviewed the resident's note and discussed the case with the resident. I agree with the resident's findings and plan as documented. SUBJECTIVE: pain has improved , feels a little bit better. no PC or SOB . OBJECTIVE: NAD , AAox3 CV : RRR, no MRG , tachycardic LUngs : CTAB ext : no edema Abd : soft, ND, no TTP in abd , L CVA tenderness ASSESSMENT AND PLAN: 22 y/o lady with no PMH who presented with fever and abd apin , and was found to have sepssi from pyelonephritis 1- Sepsis 2/2 pyelonephritis: now bacteremic - Cont zosyn pending sensitivity - IVF, received a bolus this am. - per ID repeat Blood cx not necessary 2- JORGE L: likely prerenal due to decreased po intake, renal US with mild R hydronephrosis. - Repeat US pending . if cont with hydronephrosis, will check CT scan - cont IVF 3- Tachypnea, and tachycardia due to sepsis. VQ neg - dc heparin gtt 4- DVT pX
[2017-07-17] MEDS: HEPARIN NA (PORCINE) 5,000 UNITS/ML 1ML VIAL SQ SCH (21:49)
[2017-07-18] MEDS ORDERED: DEXTROSE 5%-WATER - 50 ML IVPB ONE ×2 (01:22→08:22)
[2017-07-18] MEDS ORDERED: PIPERACILLIN/TAZOBACTAM 3.375 GM VIAL IVPB ONE (01:22)
[2017-07-18] MEDS: PIPERACILLIN/TAZOB 3.375 GM 3.375 GM in DEXTROSE 5%-WATER - 50 ML IVPB SCH (01:28)
[2017-07-18] MEDS: HEPARIN NA (PORCINE) 5,000 UNITS/ML 1ML VIAL SQ SCH ×3 (06:05→21:16)
[2017-07-18] MEDS: ACETAMINOPHEN 325 MG TABLET (FP) PO PRN ×3 (06:07→16:57)
[2017-07-18 07:25] LABS: MCH 29.5 pg (25.7-33.7); MCHC 33.3 g/dl (32.0-36.0); MEAN CELL VOLUME 88.6 fl (80-96); MEAN PLT VOLUME 8.2 fl (7.5-11.1); PLATELET COUNT 282 K/MM3 (134-434); RDW 14.4 % (11.6-15.6); WHITE BLOOD COUNT 13.1 K/mm3 (4.0-10.0)
--- NOTE | 2017-07-18 08:10 | PN ---
Progress Note, Physician Chief Complaint: ID Subjective improvement today Low grade temps 100.6 - Current Medication List Current Medications: Active Medications Acetaminophen (Tylenol -) 650 mg PO Q4H PRN PRN Reason: FEVER OR PAIN Last Admin: 07/18/17 06:07 Dose: 650 mg Heparin Sodium (Porcine) (Heparin -) 5,000 unit SQ TID CRYSTAL Last Admin: 07/18/17 06:05 Dose: 5,000 unit Sodium Chloride (Normal Saline -) 1,000 mls @ 125 mls/hr IV ASDIR CRYSTAL Last Admin: 07/17/17 22:45 Dose: 125 mls/hr Piperacillin Sod/Tazobactam (Sod 3.375 gm/ Dextrose) 50 mls @ 100 mls/hr IVPB Q8H-IV CRYSTAL PRN Reason: Protocol Last Admin: 07/18/17 01:28 Dose: 100 mls/hr - Objective Vital Signs: Vital Signs Temperature 100.6 F H 07/18/17 06:00 Pulse Rate 78 07/18/17 06:00 Respiratory Rate 20 07/18/17 06:00 Blood Pressure 118/61 07/18/17 06:00 O2 Sat by Pulse Oximetry (%) 97 07/17/17 20:22 Constitutional: Yes: Well Nourished, No Distress Neck: Yes: WNL, Supple Cardiovascular: Yes: Regular Rate and Rhythm, S1, S2. No: Murmur Respiratory: Yes: WNL, Regular, CTA Bilaterally Gastrointestinal: Yes: WNL, Normal Bowel Sounds, Soft. No: Tenderness, Tenderness, Epigastrium Genitourinary: Yes: Other (CVA tenderness less) Labs: CBC, BMP 07/18/17 05:35 Problem List - Problems (1) Sepsis Code(s): A41.9 - SEPSIS, UNSPECIFIED ORGANISM (2) Gram-negative bacteremia Code(s): R78.81 - BACTEREMIA (3) UTI (urinary tract infection) Code(s): N39.0 - URINARY TRACT INFECTION, SITE NOT SPECIFIED Assessment/Plan Microbiology 07/16/17 10:40 Urine - Urine Clean Catch Urine Culture - Preliminary Non Lactose Fermenting Gnb 07/16/17 05:10 Blood - Peripheral Venous Blood Culture - Preliminary Non Lactose Fermenting Gnb Laboratory Tests 07/16/17 07/16/17 07/16/17 01:50 01:50 04:45 WBC 19.1 H Hgb Plt Count BUN Creatinine Creat Clearance w eGFR C-Reactive Protein Serum , Qual Negative Urine RBC 11 Urine Bacteria Many HIV 1&2 Antibody Screen HIV P24 Antigen 07/17/17 07/17/17 07/18/17 05:47 11:10 05:35 WBC 13.1 H Hgb 12.3 Plt Count 282 BUN 21 H D Creatinine 1.7 H Creat Clearance w eGFR 37.25 C-Reactive Protein 18.6 H Serum , Qual Urine RBC Urine Bacteria HIV 1&2 Antibody Screen Negative HIV P24 Antigen Negative Assessment Gram neg pyelonephritis improving Pansensitive ? E Coli JORGE L Plan Stop Zosyn Ceftriaxone Once clinical improvement can hopefully change to quinolone orally Vipul MERLOS
[2017-07-18] MEDS ORDERED: ONDANSETRON 4 MG TABLET PO ONE ×2 (08:15→23:54)
[2017-07-18 08:17] LABS: ALBUMIN 1.9 g/dl (3.4-5.0); ANION GAP 12 (8-16); BILIRUBIN,TOTAL 0.7 mg/dL (0.2-1.0); CALCIUM 7.7 mg/dL (8.5-10.1); CO2 19 mmol/L (21-32); CREATININE 1.3 mg/dL (0.55-1.02); GLUCOSE,RANDOM 75 mg/dL (74-106); MAGNESIUM 2.1 mg/dL (1.8-2.4); PHOSPHOROUS 2.7 mg/dL (2.5-4.9); SGOT/AST 15 U/L (15-37); SGPT/ALT 17 U/L (12-78)
[2017-07-18 08:18] LABS: ALK PHOS 80 U/L (45-117); TOT PROT 5.1 g/dl (6.4-8.2)
[2017-07-18] MEDS ORDERED: cefTRIAXone SODIUM 1 GM VIAL ONE (08:22)
[2017-07-18] MEDS: CEFTRIAXONE 1 GM in DEXTROSE 5%-WATER - 50 ML IVPB SCH (09:15)
[2017-07-18] MEDS: SODIUM CHLORIDE 1,000 ML IV SCH (11:06)
[2017-07-18] MEDS ORDERED: SODIUM CHLORIDE 1,000 ML IV SCH (11:45)
--- NOTE | 2017-07-18 12:33 | PN ---
Progress Note, Physician History of Present Illness: pulmonary alert,feeling better,- flank pain,-sob. v/q scan-pe - Current Medication List Current Medications: Active Medications Acetaminophen (Tylenol -) 650 mg PO Q4H PRN PRN Reason: FEVER OR PAIN Last Admin: 07/18/17 11:05 Dose: 650 mg Heparin Sodium (Porcine) (Heparin -) 5,000 unit SQ TID [facility] Last Admin: 07/18/17 06:05 Dose: 5,000 unit Sodium Chloride (Normal Saline -) 1,000 mls @ 125 mls/hr IV ASDIR [facility] Last Admin: 07/18/17 11:06 Dose: 125 mls/hr Ceftriaxone Sodium 1 gm/ (Dextrose) 50 mls @ 100 mls/hr IVPB DAILY [facility] Last Admin: 07/18/17 09:15 Dose: 100 mls/hr - Objective Vital Signs: Vital Signs Temperature 97.9 F 07/18/17 08:36 Pulse Rate 66 07/18/17 08:36 Respiratory Rate 20 07/18/17 08:36 Blood Pressure 107/47 07/18/17 08:36 O2 Sat by Pulse Oximetry (%) 98 07/18/17 08:00 Constitutional: Yes: Well Nourished, Calm Eyes: Yes: WNL HENT: Yes: WNL Neck: Yes: WNL Cardiovascular: Yes: Regular Rate and Rhythm, S1, S2 Respiratory: Yes: CTA Bilaterally Gastrointestinal: Yes: Normal Bowel Sounds, Soft Extremities: Yes: WNL Edema: No Labs: CBC, BMP 07/18/17 05:35 07/18/17 05:35 Problem List - Problems (1) Gram-negative bacteremia Code(s): R78.81 - BACTEREMIA (2) Sepsis Code(s): A41.9 - SEPSIS, UNSPECIFIED ORGANISM (3) Sepsis due to Escherichia coli with acute renal failure Code(s): A41.81 - SEPSIS DUE TO ENTEROCOCCUS R65.20 - SEVERE SEPSIS WITHOUT SEPTIC SHOCK N17.9 - ACUTE KIDNEY FAILURE, UNSPECIFIED (4) UTI (urinary tract infection) Code(s): N39.0 - URINARY TRACT INFECTION, SITE NOT SPECIFIED Assessment/Plan A/P Pyelonephritis/UTI Gram Negative Bacteremia Severe Sepsis Acute Kidney Injury r/o PE - continue antibiotics - IVF - monitor urine output, creatinine - d/c anticoagulation - DVT prophylaxis DR VIRGEN
[2017-07-18] MEDS ORDERED: POTASSIUM CHLORIDE TABS 20 MEQ TABLET.ER (FP) PO ONE (13:45)
--- NOTE | 2017-07-18 18:03 | PN ---
Teaching Attending Note Name of Resident: Erica Grove ATTENDING PHYSICIAN STATEMENT I saw and evaluated the patient. I reviewed the resident's note and discussed the case with the resident. I agree with the resident's findings and plan as documented. SUBJECTIVE: No fever , feels better OBJECTIVE: NAD , AAox3 CV : RRR, no MRG LUngs : CTAB ext : no edema Abd : soft, ND, no TTP in abd , L CVA tenderness ASSESSMENT AND PLAN: 22 y/o lady with no PMH who presented with fever and abd apin , and was found to have sepsis from pyelonephritis 1- Sepsis 2/2 pyelonephritis with E coli bacteremia - Ctx - IVF 2- JORGE L: improving Repeat US showed very minimal , likley insignificant dilatio of collecting system of R kidney . - Repeat US in 2 weeks as out pt - cont IVF 3- Tachypnea, and tachycardia due to sepsis. 4- DVT pX
--- NOTE | 2017-07-18 18:15 | PN ---
Addendum entered and electronically signed by Lilli Marrero RES 07/18/17 18:16: SUBJECTIVE: Patient seen and examined. Says she feels a lot better than yesterday. Still in pain but significantly better. Original Note: Physical Exam: SUBJECTIVE: Patient seen and examined OBJECTIVE: Vital Signs Period Temp Pulse Resp BP Sys/Aparicio Pulse Ox Last 24 Hr 97.9 F-100.6 F 66-78 20-20 104-118/47-61 97-98 GENERAL: The patient is awake, alert, and fully oriented, in distress. HEAD: Normal with no signs of trauma. EYES: PERRL, extraocular movements intact, sclera anicteric, conjunctiva clear. No ptosis. ENT: Ears normal, nares patent, oropharynx clear without exudates, moist mucous membranes. NECK: supple. LUNGS: CTA b/l, no rales rhonchi or wheezing HEART: regular rate, regular rhythm, S1, S2 without murmur, rub or gallop. ABDOMEN: normoactive bowel sounds, soft, ND, + Right CVA tenderness (better than yesterday), no organomegaly EXTREMITIES: 2+ pulses, warm, well-perfused, no edema. NEUROLOGICAL: Cranial nerves II through XII grossly intact. Normal speech, gait not observed. SKIN: Warm, dry, normal turgor, no rashes or lesions noted Laboratory Results - last 24 hr 07/18/17 07/18/17 05:35 05:35 WBC 13.1 H RBC 4.16 Hgb 12.3 Hct 36.9 MCV 88.6 MCH 29.5 MCHC 33.3 RDW 14.4 Plt Count 282 MPV 8.2 Sodium 144 Potassium 3.5 Chloride 113 H Carbon Dioxide 19 L Anion Gap 12 BUN 12 D Creatinine 1.3 H D Creat Clearance w eGFR 50.76 Random Glucose 75 Calcium 7.7 L Phosphorus 2.7 Magnesium 2.1 Total Bilirubin 0.7 D AST 15 ALT 17 Alkaline Phosphatase 80 Total Protein 5.1 L Albumin 1.9 L Active Medications Generic Name Dose Route Start Last Admin Trade Name Freq PRN Reason Stop Dose Admin Acetaminophen 650 mg 07/16/17 04:35 07/18/17 16:57 Tylenol - PO 650 mg Q4H PRN Administration FEVER OR PAIN Heparin Sodium (Porcine) 5,000 unit 07/17/17 22:00 07/18/17 14:46 Heparin - SQ 5,000 unit TID CRYSTAL Administration Sodium Chloride 1,000 mls @ 125 mls/hr 07/17/17 09:30 07/18/17 11:06 Normal Saline - IV 125 mls/hr ASDIR CRYSTAL Administration Ceftriaxone Sodium 1 gm/ 50 mls @ 100 mls/hr 07/18/17 10:00 07/18/17 09:15 Dextrose IVPB 100 mls/hr DAILY CRYSTAL Administration B/l duplex: negative for DVT Renal US: mild right hydronephrosis and b/l hyperechoic kidneys Rib XR: no acute fracture TSH: 0.57 V/Q Scan- negative for PE ASSESSMENT/PLAN: 22F w/ no PMH who presented with L flank pain, found to have suprapubic and left CVA tenderness, a leukocytosis, UA showing a UTI, admitted for pyelonephritis, started on ceftriaxone. #Sepsis secondary to Pyelonephritis -urine culture positive for e. coli -left CVA -Temp 100.6 -Tachypnea resolved from yesterday. likely from sepsis -Continue IV antibiotics: Ceftriaxone -will likely start Oral antibiotics tomorrow -WBC trending down 13.1 (16.7 yesterday) -pain control with Acetaminophen 650mg q4h PRN -trend wbc count, monitor temps #JORGE L-improving -likely secondary to pyelonephritis and decreased po intake -Kidney function improving. Creatinine 1.3 (1.7 yesterday) -continue fluids NS @ 125cc -trend creatinine and BUN -U/S revealed likely insignificant dilation of collecting system of right kidney. -repeat U/S outpatient #FEN/PPx -continue IV fluids NS @ 125cc -electrolytes WNL -regular diet -no GI ppx indicated -Heparin SQ 5000U Visit type - Emergency Visit Emergency Visit: Yes ED Registration Date: 07/16/17 Care time: The patient presented to the Emergency Department on the above date and was hospitalized for further evaluation of their emergent condition. - New Patient This patient is new to me today: No - Critical Care Critical Care patient: No
[2017-07-19] MEDS: ACETAMINOPHEN 325 MG TABLET (FP) PO PRN ×2 (00:11→07:46)
[2017-07-19] MEDS ORDERED: ONDANSETRON 4 MG TABLET PO ONE (00:15)
[2017-07-19] MEDS: HEPARIN NA (PORCINE) 5,000 UNITS/ML 1ML VIAL SQ SCH ×4 (06:40→21:40)
[2017-07-19] MEDS ORDERED: DEXTROSE 5%-WATER - 50 ML IVPB ONE (08:42)
[2017-07-19] MEDS ORDERED: cefTRIAXone SODIUM 1 GM VIAL ONE (08:42)
[2017-07-19] MEDS: CEFTRIAXONE 1 GM in DEXTROSE 5%-WATER - 50 ML IVPB SCH (09:15)
[2017-07-19] MEDS: SODIUM CHLORIDE 1,000 ML IV SCH (09:16)
--- NOTE | 2017-07-19 09:40 | PN ---
Progress Note (short form) - Note Progress Note: Ceftriaxone Afebrile Selected Entries 07/19/17 08:00 Temperature 98.1 F Pulse Rate 66 Blood Pressure 123/59 Microbiology 07/16/17 10:40 Urine - Urine Clean Catch Urine Culture - Final Escherichia Coli 07/16/17 05:10 Blood - Peripheral Venous Blood Culture - Final Escherichia Coli 07/16/17 05:10 Blood - Peripheral Venous Blood Culture - Final Escherichia Coli Laboratory Tests 07/18/17 07/18/17 05:35 05:35 WBC 13.1 H Hgb 12.3 Plt Count 282 BUN 12 D Creatinine 1.3 H D Creat Clearance w eGFR 50.76 Assessment E Coli pyelonephritis with JORGE L all improving Plan Hopefully could discharge tomorrow on oral Ciprofloxacin 500mg bid for 7 days Discussed with PMD Kindly recall for questions Vipul MERLOS Problem List - Problems (1) Sepsis Code(s): A41.9 - SEPSIS, UNSPECIFIED ORGANISM (2) Gram-negative bacteremia Code(s): R78.81 - BACTEREMIA (3) UTI (urinary tract infection) Code(s): N39.0 - URINARY TRACT INFECTION, SITE NOT SPECIFIED
[2017-07-19 10:10] LABS: MCH 29.7 pg (25.7-33.7); MCHC 33.9 g/dl (32.0-36.0); MEAN CELL VOLUME 87.4 fl (80-96); MEAN PLT VOLUME 7.9 fl (7.5-11.1); PLATELET COUNT 308 K/MM3 (134-434); RDW 14.6 % (11.6-15.6); WHITE BLOOD COUNT 11.9 K/mm3 (4.0-10.0)
[2017-07-19 10:34] LABS: ALBUMIN 1.7 g/dl (3.4-5.0); ANION GAP 8 (8-16); CALCIUM 8.1 mg/dL (8.5-10.1); CO2 22 mmol/L (21-32); CREATININE 1.1 mg/dL (0.55-1.02); GLUCOSE,RANDOM 90 mg/dL (74-106); PHOSPHOROUS 3.5 mg/dL (2.5-4.9); SGOT/AST 78 U/L (15-37); SGPT/ALT 61 U/L (12-78)
[2017-07-19 10:36] LABS: ALK PHOS 75 U/L (45-117); BILIRUBIN,TOTAL 0.5 mg/dL (0.2-1.0); TOT PROT 5.2 g/dl (6.4-8.2)
[2017-07-19] MEDS ORDERED: SODIUM CHLORIDE 1,000 ML IV SCH (11:41)
--- NOTE | 2017-07-19 11:45 | PN ---
Progress Note (short form) - Note Progress Note: Subjective: no fever or chills, feels better . Objective: Vital Signs: Last Vital Signs Temp Pulse Resp BP Pulse Ox 98.1 F 66 20 123/59 100 07/19/17 08:00 07/19/17 08:00 07/19/17 08:00 07/19/17 08:00 07/19/17 08:00 Laboratory Results - last 24 hr 07/19/17 07/19/17 09:30 09:30 WBC 11.9 H RBC 4.01 Hgb 11.9 Hct 35.0 MCV 87.4 MCH 29.7 MCHC 33.9 RDW 14.6 Plt Count 308 MPV 7.9 Sodium 144 Potassium 3.4 L Chloride 114 H Carbon Dioxide 22 Anion Gap 8 BUN 8 D Creatinine 1.1 H Creat Clearance w eGFR > 60 Random Glucose 90 Calcium 8.1 L Phosphorus 3.5 D Magnesium 2.0 Total Bilirubin 0.5 D AST 78 H D ALT 61 D Alkaline Phosphatase 75 Total Protein 5.2 L Albumin 1.7 L Physical Exam: NAD , AAox3 CV : RRR, no MRG LUngs : CTAB ext : no edema Abd : soft, ND, no TTP in abd. ASSESSMENT AND PLAN: 22 y/o lady with no PMH who presented with fever and abd apin , and was found to have sepsis from pyelonephritis 1- Sepsis 2/2 pyelonephritis with E coli bacteremia - COnt Ceftriaxone - decrease IVF to 75 cc/hr - will repeat US tomorrow 2- JORGE L: improving - decrease IVF rate 3- Tachypnea, and tachycardia due to sepsis. Resolved 4- DVT pX Visit type - Emergency Visit Emergency Visit: Yes ED Registration Date: 07/16/17 Care time: The patient presented to the Emergency Department on the above date and was hospitalized for further evaluation of their emergent condition. - New Patient This patient is new to me today: No - Critical Care Critical Care patient: No
[2017-07-19] MEDS ORDERED: POTASSIUM CHLORIDE TABS 20 MEQ TABLET.ER (FP) PO ONE ×2 (12:00→15:00)
[2017-07-19] MEDS ORDERED: ONDANSETRON 4 MG TABLET PO PRN (15:54)
[2017-07-20] MEDS: HEPARIN NA (PORCINE) 5,000 UNITS/ML 1ML VIAL SQ SCH ×2 (06:40→14:40)
[2017-07-20 07:27] LABS: MCH 29.4 pg (25.7-33.7); MCHC 33.8 g/dl (32.0-36.0); MEAN PLT VOLUME 8.2 fl (7.5-11.1); PLATELET COUNT 337 K/MM3 (134-434); RDW 14.5 % (11.6-15.6); WHITE BLOOD COUNT 10.2 K/mm3 (4.0-10.0)
[2017-07-20 07:50] LABS: ANION GAP 9 (8-16); CO2 23 mmol/L (21-32); CREATININE 0.9 mg/dL (0.55-1.02); GLUCOSE,RANDOM 73 mg/dL (74-106)
[2017-07-20] MEDS ORDERED: DEXTROSE 5%-WATER - 50 ML IVPB ONE (08:49)
[2017-07-20] MEDS ORDERED: cefTRIAXone SODIUM 1 GM VIAL ONE (08:49)
[2017-07-20] MEDS: CEFTRIAXONE 1 GM in DEXTROSE 5%-WATER - 50 ML IVPB SCH (10:20)
[2017-07-20 11:09] LABS: BASOPHIL (MANUAL) 1 % (0-2.0); MYELOCYTE 1 % (0-2); PLATELET ESTIMATE ADEQUATE (NORMAL); TOTAL CELLS COUNTED 100
[2017-07-20 11:49] VITALS: BP 102/72; PULSE 62; TEMP 98.2
--- NOTE | 2017-07-20 16:39 | DS ---
Physical Examination Vital Signs: Vital Signs Temperature 98.2 F 07/20/17 10:00 Pulse Rate 62 07/20/17 10:00 Respiratory Rate 18 07/20/17 10:00 Blood Pressure 102/72 07/20/17 10:00 O2 Sat by Pulse Oximetry (%) 98 07/20/17 09:00 Findings/Remarks: no pain or SOB , had some pain and bruise on L upper arm, at the site of heparin shot Exam: NAD , AAox3 CV : RRR, no MRG LUngs : CTAB Ext : no edema on LE . small raised area with bruise 2x1 cm on lateral upper arm over the rdeltoid musle . tender to palpation Abd : soft, ND, no TTP in abd. Labs: CBC, BMP 07/20/17 06:00 07/20/17 06:00 Discharge Summary Reason For Visit: PULMONARY EMBOLISM Hospital Course: D/C diagnoses: 1- Pyelonephritis 2- Sepsis with bacteremia 3- JORGE L 4- R hydronephrosis , resolved 5- tachycardia , and tachypnea , due to sepsis Hospital course : 22 y/o lady with no PMH who presented with fever and abd pain . O n admission she was found to be eptic with WBC of 19 and in renal failure with Cr 2.3 initial w/u included renal US which showed R hydro. She was placed on Abx, adn IVF. Blood cx turned positive with E coli ( isaac sensitive ) . renal US was repeated to show resolution of the mild hydro in R kidney. she was switched to cipro , on the day of dc to complete 14 day course ( 9 more days ) . blood cx were not repeated per ID. Initially , and because pt was on control , and because she complained of tachypnea and was tachycardic, she was placed on heparin gtt transiently until VQ was done ( neg) renal failure improved with IVF and Cr is NL today. On the day of the dc , she developed small hematoma on L upper arm over deltoid due to heparin injection. she was asked to apply cold compresses Dispo : HOme F/u : given Dr. alves contact . needs to establish care script fro blood work CBC , BMP given condition : improved Time spent 40 min Microbiology 07/16/17 05:10 Blood - Peripheral Venous Blood Culture - Final Escherichia Coli 07/16/17 10:40 Urine - Urine Clean Catch Urine Culture - Final Escherichia Coli 07/16/17 05:10 Blood - Peripheral Venous Blood Culture - Final Escherichia Coli Condition: Improved - Instructions Diet, Activity, Other Instructions: - You need blood work in 1 week , to send to your primary care doctor - you need to establish care with a doctor, you can call Dr. alves clinic tomorrow and schedule appointment - report any fever or chills, or abdominal pain or worsening symptoms - drink a lot of water - take antibiotics fro 9 days . Start tomorrow mornign Referrals: Antoni Alves MD [Staff Physician] - Disposition: HOME - Home Medications Comprehensive Discharge Medication List: Ambulatory Orders Medroxyprogesterone Acetate [Depo-Provera] 400 mg IM MONTHLY 09/16/13 Ciprofloxacin HCl [Cipro] 500 mg PO BID #18 tablet 07/20/17 Miscellaneous Medical Supply [Outpatient Order] 1 each ASDIR #1 misc This patient is new to me today: No Emergency Visit: Yes ED Registration Date: 07/16/17 Care time: The patient presented to the Emergency Department on the above date and was hospitalized for further evaluation of their emergent condition. Critical Care patient: No - Discharge Referral Referred to [facility] Med [facility] Yes Physician Referral: Antoni Alves MD (Int Med)
== END 2017-07-20 15:45 | disposition home or self-care (01) | DRG 872 ==
LOC: JER 00:30 → JERBED 02:34 → UNDOADMIN 02:38 → JERBED 02:38 → J4W 15:35
PROVIDERS: ADMIT Internal Medicine; ATTEND Internal Medicine
DX: A41.51 Sepsis due to Escherichia coli [E. coli] (principal); N17.9 Acute kidney failure, unspecified; N13.6 Pyonephrosis; R65.20 Severe sepsis without septic shock; A41.9 Sepsis, unspecified organism; H05.20 Unspecified exophthalmos; E86.0 Dehydration; F17.210 Nicotine dependence, cigarettes, uncomplicated; J02.9 Acute pharyngitis, unspecified; R00.0 Tachycardia, unspecified; R06.82 Tachypnea, not elsewhere classified; S40.022A Contusion of left upper arm, initial encounter; X58.XXXA Exposure to other specified factors, initial encounter; Y93.89 Activity, other specified; Y92.238 Other place in hospital as the place of occurrence of the external cause
CPT/HCPCS: 36415; 71010-TC; 71111-TC; 76775-TC; 78582-TC; 80048; 80053; 80076; 81003; 81015; 82436; 82570; 83605; 83735; 84100; 84133; 84300; 84443; 84703; 85025; 85027; 85379; 85730; 86140; 87040; 87086; 87186; 87389; 93005; 93010; 93970-TC; 99285-25; A9539; A9540; J1644

== ENCOUNTER 2019-11-15 13:10 | Emergency (ER) | payer BC ==
[2019-11-15 13:21] VITALS: BP 127/87; PULSE 92; TEMP 98; BMI 22.3
--- NOTE | 2019-11-15 13:21 | PDOC ---
Rapid Medical Evaluation Time Seen by Provider: 11/15/19 13:19 Medical Evaluation: Allergies Allergy/AdvReac Type Severity Reaction Status Date / Time No Known Allergies Allergy Verified 11/15/19 13:18 11/15/19 13:19 I performed a brief in-person evaluation of this patient. Healthy 24-year-old female with several days of hives. No history of food/drug/ environmental allergies. No SOB, no tongue/lip swelling. Using new soap. Pertinent physical exam findings: Scattered hives. No oropharyngeal edema. No wheezing. I have ordered the following: None. Patient to proceed to FT for further evaluation. Discharge Disposition - Diagnosis Hives - Referrals - Patient Instructions - Post Discharge Activity
[2019-11-15] MEDS ORDERED: FAMOTIDINE 20 MG TABLET PO ONE (15:05)
[2019-11-15] MEDS ORDERED: diphenhydrAMINE HCL 50 MG CAPSULE PO ONE (15:05)
[2019-11-15] MEDS ORDERED: predniSONE 20 MG TABLET (UD) PO ONE (15:05)
[2019-11-15] MEDS ORDERED: FAMOTIDINE 20 MG TABLET ONE (15:13)
[2019-11-15] MEDS ORDERED: diphenhydrAMINE HCL 25 MG CAPSULE (FP) PO ONE (15:13)
[2019-11-15] MEDS ORDERED: predniSONE 20 MG TABLET (UD) ONE (15:13)
--- NOTE | 2019-11-15 15:15 | PDOC ---
History of Present Illness - General Chief Complaint: Hives Stated Complaint: HIVES Time Seen by Provider: 11/15/19 13:19 History Source: Patient Exam Limitations: No Limitations Past History - Past Medical History Allergies/Adverse Reactions: Allergies Allergy/AdvReac Type Severity Reaction Status Date / Time No Known Allergies Allergy Verified 11/15/19 13:18 Home Medications: Ambulatory Orders Famotidine [Pepcid] 20 mg PO DAILY #4 tablet 11/15/19 predniSONE [Deltasone -] 40 mg PO DAILY #8 tablet 11/15/19 Anemia: No Asthma: No Cancer: No Cardiac Disorders: No CVA: No COPD: No DVT: No Dementia: No Diabetes: No Dialysis: No GI Disorders: No Disorders: No HTN: No Hypercholesterolemia: No Kidney Stones: No Liver Disease: No Psychiatric Problems: No Seizures: No Thyroid Disease: No Lung CA: No - Surgical History Abdominal Surgery: No Appendectomy: No Cardiac Surgery: No Cholecystectomy: No Gastric Stapling: No GI Surgery: No Lung Surgery: No Neurologic Surgery: No - Immunization History Immunization Up to Date: Yes - Psycho Social/Smoking Cessation Hx Smoking History: Never smoked Have you smoked in the past 12 months: Yes Hx Alcohol Use: No Drug/Substance Use Hx: Yes (MARIJUANA) Substance Use Type: Marijuana *Physical Exam - Vital Signs Last Vital Signs Temp Pulse Resp BP Pulse Ox 98.0 F 92 H 18 127/87 98 11/15/19 13:18 11/15/19 13:18 11/15/19 13:18 11/15/19 13:18 11/15/19 13:18 - Physical Exam General Appearance: No: Apparent Distress HEENT: positive: Other (no tongue swelling) Respiratory/Chest: positive: Lungs Clear, Normal Breath Sounds. negative: Respiratory Distress Cardiovascular: positive: Regular Rhythm, Regular Rate, S1, S2. negative: Murmur Integumentary: positive: Rash (urticarial appearing along torso, few along BUE, not noted anywhere else) Neurologic: positive: Alert, Normal Mood/Affect Medical Decision Making - Medical Decision Making 24 y/o F with no sig pmh presents with itchy diffuse rash which she noted this morning. Is unsure what could have precipitated other than new soap she used the past few weeks. Denies fever, sob, cp, abd pain, n/v, use of new meds/food. Has not taken anything for rash Allergic urticaria Given benadryl, pepcid, prednisone 11/15/19 15:11 Discharge - Discharge Information Problems reviewed: Yes Clinical Impression/Diagnosis: Hives Condition: Stable Disposition: HOME - Admission No - Additional Discharge Information Prescriptions: Famotidine [Pepcid] 20 mg PO DAILY #4 tablet predniSONE [Deltasone -] 40 mg PO DAILY #8 tablet Prescription Drug Monitoring Program (I-STOP) results: I-STOP not reviewed - Follow up/Referral - Patient Discharge Instructions Patient Printed Discharge Instructions: DI for Hives Additional Instructions: Thank you for choosing [facility]. It was a pleasure taking care of you. Take Benadryl as needed for itching Take rest of meds as prescribed Return to the Emergency Department if your symptoms worsen or persist or have other concerning symptoms. - Post Discharge Activity
== END 2019-11-15 15:29 | disposition home or self-care (01) ==
LOC: JERFT 13:10
DX: L50.0 Allergic urticaria (principal)
CPT/HCPCS: 99281-25

== ENCOUNTER 2019-11-21 12:18 | Emergency (ER) | payer BC ==
[2019-11-21 12:31] VITALS: BP 110/63; PULSE 113; TEMP 99.6; BMI 22.3
[2019-11-21] MEDS ORDERED: DEXAMETHASONE LIQUID 0.5 MG/5 ML PO ONE (13:19)
[2019-11-21] MEDS ORDERED: KETOROLAC TROMETHAMINE 60 MG/2 ML VIAL IM ONE (13:19)
[2019-11-21] MEDS ORDERED: KETOROLAC TROMETHAMINE 60 MG/2 ML VIAL ONE (13:28)
[2019-11-21] MEDS ORDERED: DEXAMETHASONE SOD PHOSPHATE 10 MG/1 ML VIAL ONE (13:28)
--- NOTE | 2019-11-21 13:56 | PDOC ---
History of Present Illness - General Chief Complaint: Pain, Acute Stated Complaint: SORE THROAT Time Seen by Provider: 11/21/19 13:13 History Source: Patient Exam Limitations: Clinical Condition - History of Present Illness Initial Comments: 11/21/19 14:16 Patient with no significant past medical history present with complaint of 3- day history of sore throat, enlarged tonsils and painful to swallow. Patient reported very painful when she is unable to eat due to throat pain. Denies fever, chills, abdominal pain, nausea, vomiting, dizziness, cough or shortness of breath. Denies any other symptoms. Patient did not take anything for symptoms Is this a multiple visit Asthma Patient?: No Timing/Duration: other (3 days) Past History - Past Medical History Allergies/Adverse Reactions: Allergies Allergy/AdvReac Type Severity Reaction Status Date / Time No Known Allergies Allergy Verified 11/15/19 13:18 Home Medications: Ambulatory Orders Famotidine [Pepcid] 20 mg PO DAILY #4 tablet 11/15/19 Amox-Tr/K Cl [Augmentin - 875Mg Tablet] 1 tab PO BID #14 tablet 11/21/19 Methylprednisolone [Medrol Dose Lizandro] 4 mg PO ASDIR #21 tablet 11/21/19 Anemia: No Asthma: No Cancer: No Cardiac Disorders: No CVA: No COPD: No DVT: No Dementia: No Diabetes: No Dialysis: No GI Disorders: No Disorders: No HTN: No Hypercholesterolemia: No Kidney Stones: No Liver Disease: No Psychiatric Problems: No Seizures: No Thyroid Disease: No Lung CA: No - Surgical History Abdominal Surgery: No Appendectomy: No Cardiac Surgery: No Cholecystectomy: No Gastric Stapling: No GI Surgery: No Lung Surgery: No Neurologic Surgery: No - Immunization History Immunization Up to Date: Yes - Psycho Social/Smoking Cessation Hx Smoking History: Never smoked Have you smoked in the past 12 months: Yes Hx Alcohol Use: No Drug/Substance Use Hx: Yes (MARIJUANA) Substance Use Type: Marijuana Review of Systems - Review of Systems Able to Perform ROS?: Yes Is the patient limited Slovak proficient: No Constitutional: No: Chills, Fever, Malaise HEENTM: Yes: Symptoms Reported, See HPI, Throat Pain, Difficulty Swallowing. No : Eye Pain, Blurred Vision, Tearing, Recent change in vision, Double Vision, Cataracts, Ear Pain, Ocular Prothesis, Ear Discharge, Nose Pain, Nose Congestion , Tinnitus, Nose Bleeding, Hearing Loss, Throat Swelling, Mouth Pain, Dental Problems, Mouth Swelling, Other Respiratory: No: Symptoms reported, See HPI, Cough, Orthopnea, Shortness of Breath, SOB with Exertion, SOB at Rest, Stridor, Wheezing, Productive cough, Hemoptysis, Other Cardiac (ROS): No: Symptoms Reported, See HPI, Chest Pain, Edema, Irregular Heart Rate, Lightheadedness, Palpitations, Syncope, Chest Tightness, Other ABD/GI: No: Symptoms Reported, See HPI, Nausea, Vomiting : No: Symptoms Reported All Other Systems: Reviewed and Negative *Physical Exam - Vital Signs Last Vital Signs Temp Pulse Resp BP Pulse Ox 99.6 F 113 H 20 110/63 99 11/21/19 12:27 11/21/19 12:27 11/21/19 12:27 11/21/19 12:11/21/19 12:27 - Physical Exam 11/21/19 14:18 GENERAL: Well developed, well nourished. Awake and alert in moderate acute distress. HEENT: Moderately enlarged right erythematous tonsils with white exudate. Mildly enlarged left tonsil. No uvular deviation. No peritonsillar abscess on exam. Normocephalic, atraumatic. PERRLA, EOMI. No conjunctival pallor. Sclera are non-icteric. Moist mucous membranes. NECK: Supple. Full ROM. CARDIOVASCULAR: Regular rate and rhythm. No murmurs, rubs, or gallops. Distal pulses are 2+ and symmetric. PULMONARY: No evidence of respiratory distress. Lungs clear to auscultation bilaterally. No wheezing, rales or rhonchi. ABDOMINAL: Soft. Non-tender. Non-distended. No rebound or guarding. No organomegaly. Normoactive bowel sounds. MUSCULOSKELETAL Normal range of motion at all joints. SKIN: Warm and dry. Normal capillary refill. No rashes. NEUROLOGICAL: Alert, awake, appropriate. Gait is normal without ataxia. PSYCHIATRIC: Cooperative. Good eye contact. Appropriate mood General Appearance: Yes: Nourished, Appropriately Dressed, Apparent Distress, Moderate Distress ED Treatment Course - Medications Given in the ED: ED Medications Discontinued Medications Generic Name Dose Route Start Last Admin Trade Name Freq PRN Reason Stop Dose Admin Dexamethasone 10 mg 11/21/19 13:19 11/21/19 13:26 Decadron Liquid - PO 11/21/19 13:20 10 mg ONCE ONE Administration Ketorolac Tromethamine 60 mg 11/21/19 13:19 11/21/19 13:27 Toradol Injection - IM 11/21/19 13:20 60 mg ONCE ONE Administration Medical Decision Making - Medical Decision Making 11/21/19 14:17 Patient with no significant past medical history present with complaint of 3- day history of sore throat, enlarged tonsils and painful to swallow. Patient reported very painful when she is unable to eat due to throat pain. Denies fever, chills, abdominal pain, nausea, vomiting, dizziness, cough or shortness of breath. Denies any other symptoms. Patient did not take anything for symptoms Exam significant for moderately large right tonsils with erythema and white exudate to right tonsils with mildly enlarged left tonsils. No peritonsillar abscess visible in exam. No uvular deviation on exam. Patient afebrile now. Rapid strep negative but given patient's symptoms and low sensitivity of rapid strep test, will still treat patient for strep on Augmentin twice daily for a week and Medrol Lizandro for tonsillitis with ENT follow-up. Patient given a dose of Toradol 60 mg IM and Decadron 10 mg p.o. in the ED due to throat pain. Patient stable for discharge Discharge - Discharge Information Problems reviewed: Yes Clinical Impression/Diagnosis: Tonsillitis Pharyngitis Qualifiers: Pharyngitis/tonsillitis etiology: unspecified etiology Qualified Code(s): J02.9 - Acute pharyngitis, unspecified Condition: Stable Disposition: HOME - Admission No - Additional Discharge Information Prescriptions: Amox-Tr/K Cl [Augmentin - 875Mg Tablet] 1 tab PO BID #14 tablet Methylprednisolone [Medrol Dose Lizandro] 4 mg PO ASDIR #21 tablet - Follow up/Referral Referrals: Ulices Gilmore MD [Staff Physician] - - Patient Discharge Instructions Patient Printed Discharge Instructions: DI for Pharyngitis/Tonsillopharyngitis -- Adult Additional Instructions: Rapid strep test is negative however you be treated for strep due to rapid strep test not being 100% sensitive. Take prescribed antibiotics and finish it. Gargle with salt water as needed for throat pain. Follow-up referred ENT in 2 to 3 days for follow-up. Come back to the emergency room if worsening throat pain, swelling of the throat, unable to swallow, fever. - Post Discharge Activity
== END 2019-11-21 14:47 | disposition home or self-care (01) ==
LOC: JER 12:18
PROC: 3E0233Z Introduction of Anti-inflammatory into Muscle, Percutaneous Approach (ICD-10-PCS; principal; 2019-11-21)
DX: J03.90 Acute tonsillitis, unspecified (principal)
CPT/HCPCS: 87070; 87880; 99281-25

== ENCOUNTER 2021-03-26 10:09 | Inpatient (IN) | payer BC, OTHER ==
[2021-03-26 10:18] VITALS: BMI 23.1
[2021-03-26 10:54] LABS: BASO % 0.2 % (0-2.0); EOS % 0.1 % (0-4.5); HEMATOCRIT 41.7 % (32.4-45.2); HEMOGLOBIN 14.4 GM/dL (10.7-15.3); LYMPH % 2.7 % (8-40); MCH 32.4 pg (25.7-33.7); MCHC 34.6 g/dl (32.0-36.0); MEAN CELL VOLUME 93.6 fl (80-96); MEAN PLT VOLUME 8.8 fl (7.5-11.1); MONO % 12.8 % (3.8-10.2); NEUT % 84.2 % (42.8-82.8); PLATELET COUNT 189 K/MM3 (134-434); RBC 4.45 M/mm3 (3.60-5.2); RDW 13.9 % (11.6-15.6); WHITE BLOOD COUNT 20.1 K/mm3 (4.0-10.0)
[2021-03-26] MEDS ORDERED: ACETAMINOPHEN 1000 MG/100 ML VIAL (NON FORMULARY) IVPB ONE (11:09)
[2021-03-26] MEDS ORDERED: LACTATED RINGERS SOLUTION 1000 ML INFUS.BAG IV ONE (11:10)
[2021-03-26 11:12] LABS: CALCIUM 9.1 mg/dL (8.5-10.1)
[2021-03-26 11:13] LABS: ALBUMIN 3.4 g/dl (3.4-5.0); BLOOD UREA NITROGEN 8.6 mg/dL (7-18)
[2021-03-26 11:15] LABS: HCG,QUALITATIVE URINE Negative; INR 1.09 (0.83-1.09); PROTHROMBIN TIME (PATIENT) 13.1 SEC (9.7-13.0)
[2021-03-26 11:16] LABS: CREATININE 1.1 mg/dL (0.55-1.3)
[2021-03-26 11:17] LABS: BILIRUBIN,TOTAL 0.8 mg/dL (0.2-1); EPI CELLS 23 /uL (0-25.1); HYALINE CASTS 1 /uL (0-3.1); PH,URINE 5.5 (5.0-8.0); TOT PROT 7.4 g/dl (6.4-8.2); URINE APPEARANCE TURBID; URINE BACTERIA 2535 /uL (0-1359); URINE BILIRUBIN NEGATIVE (NEGATIVE); URINE COLOR YELLOW; URINE GLUCOSE (UA) NEGATIVE (NEGATIVE); URINE KETONE NEGATIVE (NEGATIVE); URINE LEUK ESTERASE 3+ (NEGATIVE); URINE NITRITE NEGATIVE (NEGATIVE); URINE PROTEIN 1+ (NEGATIVE); URINE RBC 192 /uL (0-23.9); URINE WBC 1684 /uL (0-25.8)
[2021-03-26 11:18] LABS: ACTIVATED PTT 28.7 SECONDS (25.2-36.5)
[2021-03-26] MEDS ORDERED: CEFTRIAXONE 1,000 MG in DEXTROSE 5%-WATER - 50 ML IVPB ONE ×2 (11:22→12:24)
[2021-03-26] MEDS ORDERED: ACETAMINOPHEN INJECTION 100 ML IVPB ONE (11:23)
[2021-03-26] MEDS ORDERED: CEFTRIAXONE 1 GM/50 ML BAG ONE ×2 (11:33→12:27)
[2021-03-26 12:33] LABS: ANISOCYTOSIS 0; MACROCYTOSIS 0; PLATELET ESTIMATE NORMAL
[2021-03-26] MEDS ORDERED: KETOROLAC TROMETHAMINE 30 MG/1 ML VIAL IVPUSH ONE (12:47)
[2021-03-26] MEDS ORDERED: KETOROLAC TROMETHAMINE 30 MG/1 ML VIAL ONE (12:49)
[2021-03-26] MEDS ORDERED: CEFTRIAXONE 1 GM in DEXTROSE 5%-WATER - 50 ML IVPB ONE (14:00)
[2021-03-26] MEDS ORDERED: ONDANSETRON 4 MG/2 ML VIAL IVPUSH ONE (15:00)
[2021-03-26] MEDS ORDERED: ONDANSETRON 4 MG/2 ML VIAL ONE (15:15)
[2021-03-26] MEDS ORDERED: ENOXAPARIN NA (PORCINE) 40 MG/0.4 ML DISP.SYRIN SQ ONE (15:15)
[2021-03-26] MEDS: ENOXAPARIN NA (PORCINE) 40 MG/0.4 ML DISP.SYRIN SQ SCH (15:23)
[2021-03-26] MEDS: ACETAMINOPHEN 1000 MG/100 ML VIAL (NON FORMULARY) IVPB PRN (21:33)
[2021-03-27] MEDS: ACETAMINOPHEN 1000 MG/100 ML VIAL (NON FORMULARY) IVPB PRN ×2 (07:04→17:00)
[2021-03-27] MEDS ORDERED: SODIUM CHLORIDE 1,000 ML IV SCH (09:45)
[2021-03-27] MEDS: ENOXAPARIN NA (PORCINE) 40 MG/0.4 ML DISP.SYRIN SQ SCH (09:48)
[2021-03-27 13:54] LABS: HEMATOCRIT 37.4 % (32.4-45.2); HEMOGLOBIN 12.8 GM/dL (10.7-15.3); MCHC 34.2 g/dl (32.0-36.0); MEAN CELL VOLUME 93.7 fl (80-96); MEAN PLT VOLUME 8.8 fl (7.5-11.1); PLATELET COUNT 197 K/MM3 (134-434); RBC 3.99 M/mm3 (3.60-5.2); RDW 14.3 % (11.6-15.6); WHITE BLOOD COUNT 16.9 K/mm3 (4.0-10.0)
[2021-03-27 14:20] LABS: BLOOD UREA NITROGEN 6.9 mg/dL (7-18); CALCIUM 8.3 mg/dL (8.5-10.1)
[2021-03-27 14:23] LABS: CREATININE 0.8 mg/dL (0.55-1.3)
[2021-03-27] MEDS ORDERED: CEFTRIAXONE 1 GM in DEXTROSE 5%-WATER - 50 ML IVPB SCH (17:00)
[2021-03-27] MEDS ORDERED: DEXTROSE 5%-WATER - 50 ML IVPB ONE (17:27)
[2021-03-27] MEDS ORDERED: cefTRIAXone SODIUM 1 GM VIAL ONE (17:27)
[2021-03-27] MEDS ORDERED: IBUPROFEN 600 MG TABLET (FP) PO PRN (17:55)
[2021-03-27] MEDS: SODIUM CHLORIDE 1,000 ML IV SCH (18:00)
[2021-03-28] MEDS: SODIUM CHLORIDE 1,000 ML IV SCH ×2 (00:18→09:42)
[2021-03-28 08:07] LABS: BASO % 0.2 % (0-2.0); EOS % 2.8 % (0-4.5); HEMATOCRIT 35.6 % (32.4-45.2); HEMOGLOBIN 11.8 GM/dL (10.7-15.3); LYMPH % 11.1 % (8-40); MCH 31.3 pg (25.7-33.7); MCHC 33.3 g/dl (32.0-36.0); MEAN CELL VOLUME 94.1 fl (80-96); MEAN PLT VOLUME 9.2 fl (7.5-11.1); MONO % 17.1 % (3.8-10.2); NEUT % 68.8 % (42.8-82.8); PLATELET COUNT 229 K/MM3 (134-434); RBC 3.78 M/mm3 (3.60-5.2); RDW 14.5 % (11.6-15.6); WHITE BLOOD COUNT 11.3 K/mm3 (4.0-10.0)
[2021-03-28 08:16] LABS: BLOOD UREA NITROGEN 5.7 mg/dL (7-18); CALCIUM 8.2 mg/dL (8.5-10.1)
[2021-03-28 08:20] LABS: CREATININE 0.6 mg/dL (0.55-1.3)
[2021-03-28] MEDS ORDERED: DEXTROSE 5%-WATER - 50 ML IVPB ONE (08:22)
[2021-03-28] MEDS ORDERED: cefTRIAXone SODIUM 1 GM VIAL ONE (08:22)
[2021-03-28] MEDS ORDERED: POTASSIUM CHLORIDE TABS 20 MEQ TABLET.ER (FP) PO ONE (09:09)
[2021-03-28] MEDS ORDERED: CEFEPIME HCL 1 GM VIAL (RESTRICTED TO ID) ONE (09:33)
[2021-03-28] MEDS ORDERED: DEXTROSE 5%-WATER 100 ML IVPB ONE (09:33)
[2021-03-28] MEDS: ACETAMINOPHEN 1000 MG/100 ML VIAL (NON FORMULARY) IVPB PRN ×2 (09:41→21:36)
[2021-03-28] MEDS: ONDANSETRON 4 MG/2 ML VIAL IVPB PRN (09:41)
[2021-03-28] MEDS: ENOXAPARIN NA (PORCINE) 40 MG/0.4 ML DISP.SYRIN SQ SCH ×2 (09:42→09:55)
[2021-03-28] MEDS ORDERED: CEFEPIME 1 GM in DEXTROSE 5%-WATER 1 GM/100 ML BAG IVPB SCH (10:00)
[2021-03-28] MEDS: CEFAZOLIN 2 GM/D5W 2 GM/50 ML ML IVPB SCH (17:58)
[2021-03-29] MEDS: CEFAZOLIN 2 GM/D5W 2 GM/50 ML ML IVPB SCH ×3 (01:30→17:52)
[2021-03-29] MEDS: SODIUM CHLORIDE 1,000 ML IV SCH ×2 (05:53→12:55)
[2021-03-29 06:57] LABS: BASO % 0.7 % (0-2.0); EOS % 4.2 % (0-4.5); HEMATOCRIT 34.8 % (32.4-45.2); HEMOGLOBIN 11.9 GM/dL (10.7-15.3); LYMPH % 15.7 % (8-40); MCH 32.5 pg (25.7-33.7); MCHC 34.3 g/dl (32.0-36.0); MEAN CELL VOLUME 94.8 fl (80-96); MEAN PLT VOLUME 8.8 fl (7.5-11.1); MONO % 15.9 % (3.8-10.2); NEUT % 63.5 % (42.8-82.8); PLATELET COUNT 256 K/MM3 (134-434); RBC 3.67 M/mm3 (3.60-5.2); RDW 14.2 % (11.6-15.6); WHITE BLOOD COUNT 9.2 K/mm3 (4.0-10.0)
[2021-03-29 07:25] LABS: BLOOD UREA NITROGEN 6.6 mg/dL (7-18)
[2021-03-29 07:28] LABS: CREATININE 0.6 mg/dL (0.55-1.3)
[2021-03-29] MEDS ORDERED: POTASSIUM CHLORIDE TABS 20 MEQ TABLET.ER (FP) PO ONE (08:45)
[2021-03-29] MEDS: ENOXAPARIN NA (PORCINE) 40 MG/0.4 ML DISP.SYRIN SQ SCH (09:49)
[2021-03-29] MEDS: ONDANSETRON 4 MG/2 ML VIAL IVPB PRN (10:11)
[2021-03-30] MEDS: CEFAZOLIN 2 GM/D5W 2 GM/50 ML ML IVPB SCH ×2 (01:45→10:19)
[2021-03-30] MEDS: SODIUM CHLORIDE 1,000 ML IV SCH (03:28)
[2021-03-30 05:30] VITALS: TEMP 98.8
[2021-03-30 07:15] LABS: BASO % 1.3 % (0-2.0); EOS % 5.6 % (0-4.5); HEMATOCRIT 34.3 % (32.4-45.2); HEMOGLOBIN 11.8 GM/dL (10.7-15.3); LYMPH % 24.2 % (8-40); MCH 32.2 pg (25.7-33.7); MCHC 34.4 g/dl (32.0-36.0); MEAN CELL VOLUME 93.6 fl (80-96); MONO % 12.8 % (3.8-10.2); NEUT % 56.1 % (42.8-82.8); PLATELET COUNT 314 K/MM3 (134-434); RBC 3.66 M/mm3 (3.60-5.2); RDW 14.1 % (11.6-15.6); WHITE BLOOD COUNT 7.8 K/mm3 (4.0-10.0)
[2021-03-30 07:44] LABS: CALCIUM 8.2 mg/dL (8.5-10.1)
[2021-03-30 07:45] LABS: BLOOD UREA NITROGEN 4.1 mg/dL (7-18)
[2021-03-30 07:48] LABS: CREATININE 0.6 mg/dL (0.55-1.3)
[2021-03-30] MEDS: ENOXAPARIN NA (PORCINE) 40 MG/0.4 ML DISP.SYRIN SQ SCH (10:19)
[2021-03-30 13:16] VITALS: BP 108/70; PULSE 66
== END 2021-03-30 15:23 | disposition home or self-care (01) | DRG 720 ==
LOC: JER 10:09 → JERBED 11:52 → J7W 17:26
PROVIDERS: ADMIT Internal Medicine; ATTEND Internal Medicine
DX: A41.9 Sepsis, unspecified organism (principal); N10 Acute pyelonephritis; E87.6 Hypokalemia; B96.20 Unspecified Escherichia coli [E. coli] as the cause of diseases classified elsewhere; D72.829 Elevated white blood cell count, unspecified
CPT/HCPCS: 36415; 74176-TC; 80048; 80053; 81003; 84703; 85025; 85027; 85610; 85730; 87040; 87086; 87186; 93005; 93010; 99285-25; C9803; J0131; U0003; U0005

== ENCOUNTER 2023-08-11 12:14 | Emergency (ER) | payer OTHER ==
[2023-08-11 12:35] VITALS: BP 118/71; PULSE 74; RESP 18; TEMP 98.5; BMI 26.4
[2023-08-11] MEDS ORDERED: METOCLOPRAMIDE HCL INJECTION 10 MG/2 ML VIAL IVPB ONE (13:30)
[2023-08-11] MEDS ORDERED: SODIUM CHLORIDE 0.9% 500 ML INFUS.BAG IV ONE (13:30)
[2023-08-11] MEDS ORDERED: ACETAMINOPHEN 1000 MG/100 ML BAG IVPB ONE (13:30)
[2023-08-11] MEDS ORDERED: MAG HYDROX/AL HYDROX/SIMETH 30 ML UNIT-DOSE CUP PO ONE (13:32)
[2023-08-11] MEDS ORDERED: FAMOTIDINE 20 MG/50 ML IVPB 20 MG/50 ML MG IVPB ONE ×2 (13:32→14:40)
[2023-08-11] MEDS ORDERED: METOCLOPRAMIDE HCL INJECTION 10 MG/2 ML VIAL ONE (14:40)
[2023-08-11] MEDS ORDERED: MAG HYDROX/AL HYDROX/SIMETH 30 ML UNIT-DOSE CUP ONE (14:40)
[2023-08-11] MEDS ORDERED: ACETAMINOPHEN INJECTION 100 ML IVPB ONE (14:40)
[2023-08-11 15:23] LABS: BASO % 0.7 % (0-2.0); EOS % 2.7 % (0-4.5); HEMATOCRIT 43.8 % (32.4-45.2); HEMOGLOBIN 14.7 GM/dL (10.7-15.3); LYMPH % 27.4 % (8-40); MCH 30.3 pg (25.7-33.7); MCHC 33.5 g/dl (32.0-36.0); MEAN CELL VOLUME 90.5 fl (80-96); MONO % 8.8 % (3.8-10.2); NEUT % 60.4 % (42.8-82.8); PLATELET COUNT 314 10^3/uL (134-434); RBC 4.84 M/mm3 (3.60-5.2); RDW 14.7 % (11.6-15.6); WHITE BLOOD COUNT 6.2 K/mm3 (4.0-10.0)
[2023-08-11 15:27] LABS: HCG,QUALITATIVE URINE Negative
[2023-08-11 15:28] LABS: EPI CELLS 27 /uL (0-25.1); HYALINE CASTS 0 /uL (0-3.1); URINE APPEARANCE CLEAR; URINE BACTERIA >9,000 /uL (0-1359); URINE BILIRUBIN NEGATIVE (NEGATIVE); URINE COLOR YELLOW; URINE GLUCOSE (UA) NEGATIVE (NEGATIVE); URINE KETONE NEGATIVE (NEGATIVE); URINE LEUK ESTERASE TRACE (NEGATIVE); URINE NITRITE NEGATIVE (NEGATIVE); URINE PROTEIN NEGATIVE (NEGATIVE); URINE RBC 11 /uL (0-23.9); URINE UROBILINOGEN 0.2 mg/dL (0.2-1.0); URINE WBC 44 /uL (0-25.8)
[2023-08-11 15:44] LABS: ALBUMIN 3.9 g/dl (3.4-5.0)
[2023-08-11 15:45] LABS: BLOOD UREA NITROGEN 8.9 mg/dL (7-18)
[2023-08-11 15:47] LABS: CREATININE 0.9 mg/dL (0.55-1.3)
[2023-08-11 15:50] LABS: BILIRUBIN,TOTAL 0.5 mg/dL (0.2-1); TOT PROT 7.5 g/dl (6.4-8.2)
[2023-08-11] MEDS ORDERED: SULFAMETHOXAZOLE/TRIMETHOPRIM 800MG/160MG D.S. TABLET PO ONE (15:56)
[2023-08-11] MEDS ORDERED: SULFAMETHOXAZOLE/TRIMETHOPRIM 800MG/160MG D.S. TABLET ONE (16:03)
== END 2023-08-11 16:16 | disposition home or self-care (01) ==
LOC: JER 12:14
PROC: 3E033GC Introduction of Other Therapeutic Substance into Peripheral Vein, Percutaneous Approach (ICD-10-PCS; principal; 2023-08-11)
PROC: 3E033NZ Introduction of Analgesics, Hypnotics, Sedatives into Peripheral Vein, Percutaneous Approach (ICD-10-PCS; 2023-08-11)
PROC: 3E033GC Introduction of Other Therapeutic Substance into Peripheral Vein, Percutaneous Approach (ICD-10-PCS; 2023-08-11)
DX: R11.2 Nausea with vomiting, unspecified (principal); R51.9 Headache, unspecified; R10.13 Epigastric pain; R05.9 Cough, unspecified; R09.81 Nasal congestion; R68.2 Dry mouth, unspecified; R35.0 Frequency of micturition
CPT/HCPCS: 36415; 80053; 81003; 83690; 84703; 85025; 87086; 87186; 99284-25